=== PATIENT | female | born 1940 | race Caucasian/White ===

== ENCOUNTER 2016-11-09 15:48 | Inpatient (IN) ==
[2016-11-09] MEDS ORDERED: NS 1,000 ML IV ONE ×3 (16:04→19:11)
[2016-11-09] MEDS ORDERED: HUMULIN R SUBQ ONE (16:04)
[2016-11-09 16:10] LABS: ALLEN TEST YES; BE -9.5 mmoll (-3.0-3.0); BLOOD TYPE ARTERIAL; DRAW SITE L RADIAL; METHB 1.1 % (0.0-1.5); O2(CT) 23.4 mL/dL (15.0-23.0); PCO2(98.6) 24 mmHg (35-45); PO2(98.6) 173 mmHg (60-100); SAMPLE BLOOD; SAO2 99.5 % (95.0-100.0); THB 16.9 g/dL (11.5-17.4); pH(98.6) 7.36 (7.35-7.45)
[2016-11-09] MEDS ORDERED: NARCAN IV ONE (16:11)
[2016-11-09 16:12] LABS: MODALITY CANNULA
[2016-11-09 16:21] LABS: BASO% 0.2 % (0.0-0.8); HEMATOCRIT 49.9 % (37.0-47.0); HEMOGLOBIN 16.8 g/dL (12.0-16.0); IMM GRAN# 0.24 X1000 (0.0-0.04); IMM GRAN% 0.9 % (0.0-0.5); LYMPH# 1.26 X1000 (1.2-3.4); MANUAL DIFF NEEDED? YES; MCH 32.1 PG (27-31); MCHC 33.7 g/dL (33-37); MCV 95.4 FL (81-99); MONO# 0.85 X1000 (0.11-0.59); MONO% 3.3 % (1.7-9.3); MPV 11.6 FL (7.4-10.4); NEUT% 90.6 % (42.2-75.2); PLT 301 X1000 (130-400); RBC 5.23 XMIL (4.2-5.4)
--- NOTE | 2016-11-09 16:28 | Diag Imaging Result Doc PS360 ---
EXAM: CHEST-1 VIEW HISTORY: altered TECHNIQUE: AP portable at 1624, upright COMMENT: The atelectasis demonstrated on 11/19/2013 in the lingula is no longer present. Otherwise the appearance of the chest has not changed significantly. IMPRESSION: No acute disease. Electronically signed by Arnoldo Wray 11/09/2016 4:26 PM
[2016-11-09] MEDS ORDERED: VANCOMYCIN 1 GM/NS 1 GM/250 ML IVPB IV ONE (16:55)
[2016-11-09] MEDS ORDERED: LEVAQUIN 500 MG/D5W 500 MG/100 ML IVPB IV ONE (16:55)
[2016-11-09 16:57] LABS: ALBUMIN 3.6 g/dL (3.5-5.0); LYMPHS 9 % (21-51); MAGNESIUM 3.6 mg/dL (1.5-2.7); MONO 6 % (1-9); POTASSIUM 4.5 mmol/L (3.5-5.1); TOTAL BILIRUBIN 0.86 mg/dL (0.20-1.00); TOTAL PROTEIN 7.4 g/dL (6.3-8.3)
[2016-11-09 17:32] LABS: URINE SOURCE CATH
[2016-11-09 17:43] LABS: BILIRUBIN URINE NEGATIVE (NEGATIVE); BLOOD URINE SMALL (NEGATIVE); COLOR ORANGE; GLUCOSE URINE NEGATIVE (NEGATIVE); LEUKOCYTES URINE LARGE (NEGATIVE); NITRITE URINE NEGATIVE (NEGATIVE); PH URINE 5.5; PROTEIN URINE 200 mg/dL (NEGATIVE); SP GRAVITY URINE 1.019; TURBIDITY URINE TURBID (CLEAR); UROBILINOGEN URINE NORMAL (NORMAL)
[2016-11-09 17:48] LABS: UR AMPHETAMINES QUAL NONE DETECTED (NONE DETECT); UR BARBITUATES QUAL NONE DETECTED (NONE DETECT); UR BENZODIAZEPIN QUAL NONE DETECTED (NONE DETECT); UR CANNABINOIDS QUAL NONE DETECTED (NONE DETECT); UR COCAINE QUAL NONE DETECTED (NONE DETECT); UR METHADONE QUAL NONE DETECTED (NONE DETECT); UR OPIATES QUAL NONE DETECTED (NONE DETECT); UR OXYCODONE QUAL NONE DETECTED (NONE DETECT); UR PCP QUAL NONE DETECTED (NONE DETECT)
[2016-11-09 17:50] LABS: UR EPITHELIAL CELLS >10 /HPF (<10); URINE BACTERIA 4+ /HPF; URINE CULTURE NEEDED? YES; URINE MICRO REVIEW NEEDED? YES; URINE WBC TNTC /HPF (<10)
--- NOTE | 2016-11-09 18:03 | PROVIDER DOCUMENTATION ---
This chart was entered by Tate Pritchett Scribe, acting as scribe for Bridger Tilley MD. HPI-Neurological Disorder <Vernon Shanks - Last Filed: 11/09/16 19:51> - General Source: EMS Unable to obtain history due to:: altered - History of Present Illness-Neuro Severity: reports: severe Onset/Duration: reports: unsure Timing: reports: still present, constant Context: reports: found unresponsive by bystander Character of Altered Mental Status: reports: unresponsive, decreased responsiveness Any recent trauma/injury?: reports: none Associated Symptoms: reports: decreased ability to walk or stand, sleepy, weakness. denies: fever/chills, vomiting <Bridger Tilley - Last Filed: 11/18/16 15:46> - General Chief Complaint: Unresponsive Stated Complaint: UNRESPONSIVE Time Seen by Provider: 11/09/16 15:48 Allergies/Adverse Reactions: Patient Allergies Allergy/AdvReac Type Severity Reaction Status Date / Time No Known Allergies Allergy Verified 11/09/16 18:01 Home Medications: Home Medication List Medication Instructions Recorded Confirmed Last Taken Type Aspirin [Aspirin EC] 81 mg PO DAILY 11/09/16 11/09/16 Unknown History Duloxetine HCl 40 mg PO DAILY 11/09/16 11/09/16 Unknown History Furosemide [Lasix] 20 mg PO DAILY 11/09/16 11/09/16 Unknown History Metformin HCl [Metformin HCl ER] 500 mg PO DAILY 11/09/16 11/09/16 Unknown History SIMVAstatin [Zocor] 10 mg PO HS 11/09/16 11/09/16 Unknown History Valsartan/Hydrochlorothiazide 1 each PO DAILY 11/09/16 11/09/16 Unknown History [Valsartan-Hctz 160-25 mg Tab] - History of Present Illness-Neuro Nature of Presenting Problem: patient is a 76 y/o F that presents to the ER with decreased responsiveness. patient was found at her residence slumped over. She hasn't been seen in a few days. her oxygenation saturation was 77% on 15lpnc en route. She was found to have been incontient of stool or urine. (Tate Pritchett) patient is a 76 y/o F that presents to the ER with decreased responsiveness. patient was found at her residence slumped over. She hasn't been seen in a few days. her oxygenation saturation was 77% on 15lpnc en route. She was found to have been incontient of stool or urine. (Bridger Tilley) Review of Systems - Adult - REVIEW OF SYSTEMS - ADULT Constitutional: reports: see HPI <Vernon Shanks - Last Filed: 11/09/16 19:51> - REVIEW OF SYSTEMS - ADULT ROS:: unobtainable per condition Constitutional: reports: no symptoms reported, see HPI Respiratory: reports: shortness of breath Gastrointestinal: denies: diarrhea, vomiting Genitourinary: reports: incontinence Musculoskeletal: reports: joint swelling Integumentary: reports: skin sores/ulcer Neurological: reports: other (ams) All Other Systems: Reviewed and Negative <Bridger Tilley - Last Filed: 11/18/16 15:46> Past History - Adult - PAST MEDICAL HISTORY-ADULT Review of Records: reports: Nursing Assessment Review, Medications Reviewed <Bridger Tilley - Last Filed: 11/18/16 15:46> Physical Exam- Neurological - Physical Exam-Neuro Exam Limited by: pt condition Initial Vital Signs Reviewed: Yes General Appearance: severe distress, obese, lethargic Eye Exam: bilateral eye: other (pinpoint) HENMT: TMs normal, other (dry oral mucosa) Head Injury: negative: ecchymosis, tenderness Respiratory: no accessory muscle use, respiratory distress (moderate), decreased breath sounds. negative: rales, rhonchi, wheezing Cardiovascular: no JVD, no murmur, tachycardia Abdominal Exam: normal bowel sounds, non tender, soft Extremity: swelling (right arm). negative: deformity Integumentary: swelling (right arm), other (pressure sore to forehead right side...strangulation type pressure ulcer to right axilla( consistent with bra line) blistering to right hand and right forearm, excoloration to rectum area) Psych/Mental Status: other (lethargic, only responsive to painful stimuli) - Glascow Coma Scale Best Eye Response: (2) open to pain Best Verbal Response: (2) incomprehsible sounds Best Motor Response: (5) localizes to pain Total Glascow Score: 9 <Bridger Tilley - Last Filed: 11/18/16 15:46> Progress - PLAN OF CARE/RESULTS Result Diagrams: 11/09/16 15:53 11/09/16 15:53 - REASSESSMENT Reassessment #2 Time Reassessed: 19:46 (May need fasciotomy) Status: improving - CONSULTS/PCP/HOSPITALIST Notification #1 *Consult/PCP/Hospitalist*: Dr Cook Time Discussed: 19:47 Consult Disposition: Will see in ED <Vernon Shanks - Last Filed: 11/09/16 19:51> - PLAN OF CARE/RESULTS Result Diagrams: 11/18/16 05:05 11/18/16 05:05 - REASSESSMENT Reassessment #1 Time Reassessed: 16:45 Status: improving Reassessment Comment: pt more responsive - EKG 1 Time of EKG reading by physician:: 16:04 EKG Read and Signed by:: Bridger Tilley EKG Interpretation (*Must complete 3 of following elements*): Abnormal Rate: 110 Rhythm: sinus tachycardia QRS: other (left posterior fascicular block) [place] Interval: normal ST Wave: normal - XRAY 1 XRAY Study: Chest Impression: Normal XRAY Interpretation: nad <Bridger Tilley - Last Filed: 11/18/16 15:46> - PLAN OF CARE/RESULTS Progress/Plan/Lab Results: Orders Category Date Time Status Admit - [facility] Routine [id number] 11/09/16 22:24 Ordered Activity - Up with Assistance ORDERED Care 11/09/16 22:24 Active FSBS/Accucheck Result Q4HR Care 11/09/16 22:24 Active Intake and Output-Strict ORDERED Care 11/09/16 22:24 Active Misc. NRSG Communication Order DIRECTED Care 11/09/16 22:24 Active Nursing- MD Consult Request ROUTINE Care 11/09/16 22:24 Completed Vital Signs Order Q 8-HR ASSESS Care 11/09/16 22:24 Completed Physician/Provider Consults Routine Cons 11/09/16 22:24 Ordered NPO Diet 11/09/16 20:13 Completed CHEST-1 VIEW [RAD] Stat Exams 11/09/16 16:03 Completed EXTREM UPPER W/O CONTRAST [CT] Stat Exams 11/09/16 22:24 Completed HEAD W/O CONTRAST [CT] Stat Exams 11/09/16 16:01 Completed A1C HGB W EST AVG GLUCOSE [CHEM] Stat Lab 11/09/16 15:53 Completed ABG [RESP] Routine Lab 11/09/16 16:01 Completed BLOOD CULTURE [BLDCUL] Stat Lab 11/09/16 17:32 Completed CBC WITH DIFF [HEME] Routine Lab 11/10/16 05:00 Completed CBC WITH DIFF [HEME] Stat Lab 11/09/16 15:53 Completed CK TOTAL [CHEM] Stat Lab 11/09/16 15:53 Completed COMPREHENSIVE METABOLIC PANEL [CHEM] Routine Lab 11/10/16 05:00 Completed COMPREHENSIVE METABOLIC PANEL [CHEM] Stat Lab 11/09/16 15:53 Completed GRAM STAIN [BLDCUL] Stat Lab 11/09/16 17:30 Completed GRAM STAIN [BLDCUL] Stat Lab 11/09/16 17:32 Completed LACTATE, PLASMA [CHEM] Stat Lab 11/09/16 16:11 Completed LACTATE, PLASMA [CHEM] Stat Lab 11/09/16 20:25 Completed MAGNESIUM [CHEM] Stat Lab 11/09/16 15:53 Completed PT [PROTIME WITH INR] [COAG] Stat Lab 11/09/16 16:10 Completed PTT [COAG] Stat Lab 11/09/16 16:10 Completed URINALYSIS W/POSS RFLX CULT [URINALYSIS] Stat Lab 11/09/16 17:00 Completed URINE CULTURE [RM] Routine Lab 11/09/16 17:51 Completed URINE DRUG SCREEN Stat Lab 11/09/16 17:00 Completed URINE MANUAL MICROSCOPIC [URINALYSIS] Stat Lab 11/09/16 17:00 Completed 0.9% Sodium Chloride Inj [Ns] 1,000 ml Med 11/09/16 22:24 Discontinued IV 175 mls/hr 0.9% Sodium Chloride Inj [Ns] 1,000 ml Med 11/09/16 16:55 Discontinued IV 999 mls/hr 0.9% Sodium Chloride Inj [Ns] 1,000 ml Med 11/09/16 19:11 Discontinued IV 999 mls/hr 0.9% Sodium Chloride Inj [Ns] 1,000 ml Med 11/09/16 16:04 Discontinued IV Wide Open Acetaminophen [Tylenol] Med 11/09/16 22:24 Active 650 mg PO Q6H PRN PRN Aspirin EC Med 11/10/16 09:00 Discontinued 81 mg PO DAILY Enoxaparin [Lovenox] Med 11/09/16 22:24 Discontinued 40 mg SUBQ NOW ONE Insulin Glargine [Lantus] Med 11/10/16 09:00 Active 20 unit SUBQ DAILY Insulin Glargine [Lantus] Med 11/09/16 22:24 Discontinued 20 unit SUBQ NOW ONE Insulin Human Regular [Humulin R] Med 11/09/16 16:04 Discontinued 10 unit SUBQ NOW ONE Insulin Lispro [Humalog] Med 11/09/16 22:24 Discontinued See Protocol SUBQ AC + HS Levofloxacin 500 mg/D5w [Levaquin 500 mg/D5w] Med 11/09/16 16:55 Discontinued 500 mg in 100 ml IV NOW Naloxone [Narcan] Med 11/09/16 16:11 Discontinued 0.4 mg IV NOW ONE Ondansetron [Zofran] Med 11/09/16 22:24 Active 4 mg IV Q4H PRN PRN Piperacil/Tazobact 2.25 gm/Ns [Zosyn 2.25 gm/Ns] Med 11/09/16 22:24 Discontinued 2.25 gm in 50 ml IV NOW Piperacil/Tazobact 2.25 gm/Ns [Zosyn 2.25 gm/Ns] Med 11/10/16 04:00 Discontinued 2.25 gm in 50 ml IV Q6H Vancomycin 1 gm/Ns Med 11/09/16 16:55 Discontinued 1 gm in 250 ml IV NOW Venous U/S Right Arm Stat Ther 11/09/16 20:05 Draft Transfer/Admit Order [TRANSFER] Routine Transfer 11/09/16 20:[address] scan of head @ 18:00, Dr. Shanks assuming care for final admission pending review of same. pt continues to improve. (Bridger Tilley) Departure - Departure Date of Disposition Decision: 11/09/16 Time of Disposition Decision: 19:48 <Vernon Shanks - Last Filed: 11/09/16 19:51> - Departure Date of Disposition Decision: 11/09/16 Time of Disposition Decision: 19:47 Certified Medical Emergency: Emergent - Critical Care Note This patient required my direct & personal management of CC.: Yes Total Time (mins): 90 Critical Care Statement: This patient required my direct personal management to treat or rule out processes, the absence of which, could potentiallly result in sudden, clinically significant life or limb threatening deterioration. <Bridger Tilley. - Last Filed: 11/18/16 15:46> - Departure DIAGNOSIS: Acute renal failure Qualifiers: Acute renal failure type: unspecified Qualified Code(s): N17.9 - Acute kidney failure, unspecified Rhabdomyolysis Qualifiers: Rhabdomyolysis type: traumatic Encounter type: initial encounter Qualified Code (s): T79.6XXA - Traumatic ischemia of muscle, initial encounter Diabetes Qualifiers: Diabetes mellitus complication status: with hyperosmolarity Disposition: ADMITTED INPATIENT 09 Condition: Critical This chart was documented by the indicated scribe, (Tate Pritchett, Scribe) and accurately reflects the services I performed and decisions made by me, Bridger Tilley MD, as attested by the provider's signature.
--- NOTE | 2016-11-09 18:04 | Diag Imaging Result Doc PS360 ---
EXAM: HEAD W/O CONTRAST HISTORY: altered, trauma TECHNIQUE: CT of the head without contrast COMMENT: There is no evidence of mass effect bleed or abnormal extra-axial fluid collection. The calvarium is somewhat thickened. There is no evidence of acute paranasal sinus disease. The calvarium is intact. There are no previous studies. IMPRESSION: No evidence of acute intracranial disease. Electronically signed by Arnoldo Wray 11/09/2016 6:02 PM
[2016-11-09 20:26] LABS: INR 1.17; PROTIME 12.4 Seconds (9.2-11.7); PTT 23.6 Seconds (22.0-36.0)
[2016-11-09 21:36] LABS: HEMOGLOBIN A1C 6.5 % (4.8-6.0)
--- NOTE | 2016-11-09 21:49 | HISTORY AND PHYSICAL ---
REASON FOR ADMISSION: Found obtunded at home. HISTORY OF PRESENT ILLNESS: Ms. Yaritza Chan is a 76-year-old lady with past medical history of type 2 diabetes, hypertension, allergic rhinitis, hyperlipidemia. Primary care physician at this time is unknown. She was brought in today after her landlord noticed that she had not picked up her mail for 5 days in a row. He went to knock at the door and opened the door and found the patient laying on the couch with her right arm behind her. At that time she was noted to be obtunded, lethargic, and not responsive. She was covered in old and new feces. She then brought to the ER for further evaluation. Unfortunately there are no family members to give us any information. She lives alone. When I saw the patient she would open eyes only to her name but that was pretty much the extent of our conversation. The nurse actually who was taking care of her told me that she was a little more responsive since she has gotten 3 L of normal saline. REVIEW OF SYSTEMS: Could not be ascertained for obvious reasons. Her urine output is very minimal, about 50 mL after 3 L. ALLERGIES: No known allergies. HOME MEDICATIONS: Aspirin 81 mg daily, Cymbalta 40 mg daily, Lasix 20 mg daily , metformin 500 mg daily, Zocor 100 mg at bedtime, Diovan/hydrochlorothiazide 160/12.5 daily. FAMILY HISTORY: Could not be obtained. PAST SURGICAL HISTORY: Per old records showed that she has had bilateral knee surgery, cataract surgery, breast augmentation, cholecystectomy, skin cancer excision, and bladder sling. SOCIAL HISTORY: Per old records, does not smoke, drink, or use drugs. LAB WORK: White count 25,000, hemoglobin and hematocrit of 16 and 49, platelets 301,000. BUN is 200, creatinine 8, glucose 527, magnesium 3.3. AST 41, ALT 50, anion gap is 31 , bicarb 20, alkaline phosphatase 122. CK 1080. Lactate 4.4. Urine drug screen was negative. Urinalysis too numerous to count white cells, 4+ bacteria. PH 7.3, pCO2 24, pO2 173 on 3 L. EKG shows sinus tachycardia with left axis deviation. Chest x-ray and CT scan showed no acute cardiopulmonary and intracranial processes. PHYSICAL EXAMINATION: GENERAL: Obese, elderly woman who is very lethargic. She opens her eyes only to her name and later during the course of the exam, was able to tell me her name but that was the extent of how far she would talk. VITAL SIGNS: Heart rate is 110, respirations 25, blood pressure 98/51, 100% on 3 L. She is afebrile. HEENT: Head is normocephalic, atraumatic. Eyes, pupils are miotic but reactive. Affect is flat. Anicteric and not pale. ENT exam, dry oral mucosa. No sinus cyanosis. NECK: Supple. No JVD or carotid bruit. No thyromegaly. Decreased skin turgor. CHEST: Clear to auscultation both lung sotelo. CARDIOVASCULAR: First and sounds heard. No gallops, rubs. Rhythm is regular. ABDOMEN: Protuberant soft, nontender. No megaly. Bowel sounds hypoactive. RECTAL: Deferred at this time. EXTREMITIES: She has trace edema of her lower extremities. Pulses distally are intact and symmetrical. Upper extremity on the hand, she has significant 3+ edema and swelling of her right upper extremity. It is warm. No dusky coloration. Distally pulses are palpable in both upper extremities and are symmetrical. She has an area of ecchymosis and what I would term as early stage I pressure ulcer on the tail of her breast. Her right axilla, however, shows a huge necrotic area and foul-smelling discharge emanating from the entire right axilla. No cyanosis. No clubbing. The patient will follow few basic commands but she is for most part lethargic and obtunded. She is unable to move her right upper extremity. She will sporadically move her left upper extremity and lower extremity. SKIN: See above. MUSCULOSKELETAL: See above. ASSESSMENT: 1. Early sepsis from urinary tract infection. 2. Acute kidney injury secondary to rhabdomyolysis. 3. Rhabdomyolysis secondary to probable early myonecrosis ? compartment syndrome. 4. Metabolic encephalopathy secondary to acute kidney injury. 5. Uncontrolled diabetes. 6. Hyperlipidemia. 7. History of hypertension. PLAN: At this time the patient will be admitted and started on Zosyn and vancomycin primarily for the early soft tissue infection and also possible urinary tract infection. IV fluids will be administered aggressively to maintain a blood pressure and if this fails we may consider adding on pressors. Keep arm elevated. Consult general surgery for possible debridement of axillary area. Started on humalog and Lantus to control her blood sugar. It is very likely patient's renal failure is a combination of rhabdomyolysis, poor oral intake, possible concomitant use of her blood pressure medication and prolonged hypotension. If this does not improve significantly, I suggest consulting Nephrology to see. I do suspect this should turn around with aggressive fluid resuscitation. DVT prophylaxis will be with heparin. Critical care > 30 mins Addendum Patient's ultrasound of RUE showed DVT of basillic and axillary veins. cc: Kd Cook MD MTDD
[2016-11-09] MEDS ORDERED: LANTUS SUBQ ONE (22:24)
[2016-11-09] MEDS ORDERED: ZOSYN 2.25 GM/NS 2.25 GM/50 ML IVPB IV ONE (22:24)
[2016-11-09] MEDS ORDERED: TYLENOL PO PRN (22:24)
[2016-11-09] MEDS ORDERED: LOVENOX SUBQ ONE (22:24)
[2016-11-09] MEDS ORDERED: INSULIN PEN NEEDLES ONE (22:51)
[2016-11-09] MEDS: NS 1,000 ML IV SCH (22:53)
[2016-11-09] MEDS: HUMALOG SUBQ SCH (22:54)
[2016-11-10] MEDS ORDERED: CALMOSEPTINE OINTMENT TOP PRN (02:27)
[2016-11-10] MEDS: ZOSYN 2.25 GM/NS 2.25 GM/50 ML IVPB IV SCH ×4 (04:12→22:26)
--- NOTE | 2016-11-10 05:32 | EKG Report ---
Test Performed on : 11/09/2016 4:03:29 PM Test Reason : Tachycardia/Re-Ordered Blood Pressure : / mmHG Vent. Rate : 110 BPM Atrial Rate : 110 BPM P-R Int : 160 ms QRS Dur : 082 ms QT Int : 340 ms P-R-T Axes : 068 117 042 degrees QTc Int : 460 ms Sinus tachycardia. Left posterior fascicular block Abnormal ECG When compared with ECG of 28-JUL-2010 08:16, Left posterior fascicular block is now present Unconfirmed Result
[2016-11-10] MEDS: HUMALOG SUBQ SCH ×4 (06:13→22:50)
[2016-11-10 06:22] LABS: BASO% 0.1 % (0.0-0.8); HEMATOCRIT 42.4 % (37.0-47.0); HEMOGLOBIN 14.5 g/dL (12.0-16.0); IMM GRAN# 0.28 X1000 (0.0-0.04); IMM GRAN% 1.2 % (0.0-0.5); LYMPH# 0.65 X1000 (1.2-3.4); LYMPH% 2.7 % (20.5-51.1); MANUAL DIFF NEEDED? YES; MCH 32.7 PG (27-31); MCHC 34.2 g/dL (33-37); MCV 95.7 FL (81-99); MONO# 1.89 X1000 (0.11-0.59); MONO% 7.9 % (1.7-9.3); MPV 11.1 FL (7.4-10.4); NEUT% 88.1 % (42.2-75.2); PLT 175 X1000 (130-400); RBC 4.43 XMIL (4.2-5.4)
[2016-11-10] MEDS: NS 1,000 ML IV SCH ×2 (07:06→16:24)
[2016-11-10 07:07] LABS: ALBUMIN 2.6 g/dL (3.5-5.0); CALCIUM 8.3 mg/dL (8.8-10.2); POTASSIUM 3.8 mmol/L (3.5-5.1); TOTAL BILIRUBIN 0.53 mg/dL (0.20-1.00); TOTAL PROTEIN 5.5 g/dL (6.3-8.3)
--- NOTE | 2016-11-10 07:46 | Diag Imaging Result Doc PS360 ---
EXTREM UPPER W/O CONTRAST - 11/09/2016 INDICATION: myonecrosis TECHNIQUE: CT of the right arm without contrast. A CT dose reduction protocol was used. COMPARISON: None FINDINGS: At the proximal biceps muscle extending to the undersurface of the pectoralis muscle, there is some intramuscular gas. There is also significant soft tissue edema about the muscles of the upper arm. No drainable fluid collections. No fractures or bony erosions. No foreign body. The edema extends into the forearm somewhat. The gas however is limited to the upper biceps muscle. IMPRESSION: Findings concerning for necrotizing fasciitis of the upper biceps muscle extending to the undersurface of the pectoralis muscles. Diffuse subcutaneous edema about the right arm is indeterminate. This could represent cellulitis, venous insufficiency, or more widespread myositis. Electronically signed by Luke Hoover 11/10/2016 7:44 AM
[2016-11-10 07:54] LABS: LYMPHS 6 % (21-51); MONO 10 % (1-9)
[2016-11-10] MEDS ORDERED: VANCOMYCIN IV PER PHARMACY MISC SCH (08:00)
[2016-11-10] MEDS ORDERED: SODIUM BICARBONATE 8.4% 150 MEQ in D5W 1,000 ML IV SCH (09:00)
[2016-11-10] MEDS ORDERED: ASPIRIN EC PO SCH (09:00)
[2016-11-10] MEDS ORDERED: NS IV SCH (09:00)
[2016-11-10] MEDS ORDERED: CUBICIN IV SCH (09:00)
[2016-11-10] MEDS ORDERED: XYLOCAINE 1%/EPI 1:100,000 ONE (09:04)
[2016-11-10] MEDS ORDERED: NS 250 ML ONE (09:04)
[2016-11-10] MEDS ORDERED: HEPARIN ONE ×2 (09:04→11:57)
[2016-11-10] MEDS ORDERED: VERSED ONE (09:08)
[2016-11-10] MEDS ORDERED: XYLOCAINE-MPF 2% ONE ×2 (09:08→09:10)
[2016-11-10] MEDS ORDERED: DIPRIVAN 1% ONE (09:09)
[2016-11-10] MEDS ORDERED: FENTANYL ONE (09:09)
[2016-11-10] MEDS ORDERED: QUELICIN (DOSE) ONE (09:10)
--- NOTE | 2016-11-10 09:48 | PROGRESS NOTE ---
DATE: 11/10/2016 SUBJECTIVE DATA: Ms. Chan is an unfortunate, 76-year-old, female who was found down for an unknown period of time in her apartment. The landlord had not seen her in multiple days and finally check on her and found her unresponsive on the couch covered in feces. The patient was brought emergently to the ER here and was found to be in acute renal failure with a creatinine of 8 and BUN of 201. She was hypotensive with a white count of 25. Apparently, she was found malrotated, laying on her arm. She has obvious bruising and ulceration to the right axilla area. A CT scan subsequently revealed concerns for necrotizing fasciitis in the right axilla. This morning, we have spoken with Dr. Cope with surgery and Dr. Chu with nephrology. The plan is for emergent fasciotomy and Vas-Cath placement. The patient will then undergo hemodialysis. The patient herself is nonverbal. She is awake and follows commands but she will not say anything when asked. We do not have any family at the bedside. Son has been consult contacted. He lives in [place] and is on a plane on his way down here currently. She is a full code. Currently, she is hemodynamically stable in the ICU. No acute events noted overnight by the nursing staff. She does have gram positive cocci bacteremia confirmed. OBJECTIVE DATA: Vital Signs: Blood pressure is 121/65, heart rate is 102, respiratory rate 25, O2 saturations 98% on 2 L nasal cannula. Temperature is 97.1 degrees. General: This is an overweight, female, lying in the hospital bed. No acute distress. Neurologic: The patient is awake with her eyes open but she will not verbalize. She follows commands. There is generalized weakness noted but no focal deficits. HEENT: Head is atraumatic and normocephalic. Her pupils are equal, round, and reactive to light. Oral mucosa is a bit dry. Trachea is midline. There is no JVD. Chest: Clear to auscultation bilaterally. Obvious bruising and ulceration to the right axilla with bruising extending into the right chest wall. CV: Regular rate and rhythm. S1 and S2 are noted. GI: Soft and nondistended. Bowel sounds are hypoactive. Extremities: Right upper extremity, fingers are swollen and erythematous. A pulse is palpable but it is faint. Doppler is positive in the right radial artery. Lower extremities without edema, clubbing, or cyanosis. Pulses are diminished but palpable. DIAGNOSTIC DATA: WBCs 23.9, hemoglobin 14.5, hematocrit 42.4, and platelet count 175,000. Sodium 150, potassium 3.8, chloride 110, CO2 16, anion gap 24, BUN 181, creatinine 7.1, glucose is 231, calcium 8.3. Total bilirubin 0.53, AST 60, ALT 50, alkaline phosphatase 91, albumin 2.6. Lactic acid 3.7. ASSESSMENT AND PLAN: 1. Acute kidney injury: Dr. Chu is following and the plan is for dialysis. We have ordered multiple urine studies and a renal ultrasound, and have added bicarb fluids. We will continue to watch her acid base balance and volume status. 2. Necrotizing fasciitis: Dr. Cope is aware and has seen the patient. He is going to take her to surgery for a fasciotomy and debridement. We have started broad-spectrum antibiotics and we will consult Dr. Ortiz with infectious disease as well. We will continue to monitor her neurovascular status very closely. 3. Severe sepsis: Secondary to necrotizing fasciitis and urinary tract infection, and to now gram-positive bacteremia. She continues to have a lactic acidosis which we are trending and we will continue to trend until clear. We will continue daptomycin and Zosyn. 4. Rhabdomyolysis: We will attempt to alkalinize her urine with bicarb and continue intravenous fluids. Patient will receive dialysis. We will trend her CK until within normal limits. 5. Elevated anion gap metabolic acidosis: Multifactorial, secondary to lactic acidosis and renal failure. Patient does have possible criteria for diabetic ketoacidosis but this is improved with fluids and insulin. We will continue to watch her anion gap and CO2 closely. We will continue the bicarb drip as well. 6. Urinary tract infection: As above. 7. The patient is critically ill at this time. Her prognosis is poor. We have spoken with her son who is flying down from [place] at the time of this dictation. He currently wishes for her to be a full code. 8. Deep venous thrombosis prophylaxis will be provided with sequential compression devices. 9. Critical care time with this patient is 35 minutes. Dictated by MAGGIE Braxton for Raul Ahuja MD cc: MAGGIE Braxton MD
[2016-11-10] MEDS ORDERED: NEO-SYNEPHRINE ONE (10:10)
[2016-11-10] MEDS ORDERED: EPHEDRINE ONE (10:15)
[2016-11-10] MEDS ORDERED: HYDROGEN PEROXIDE SOLUTION ONE (10:29)
[2016-11-10] MEDS: LANTUS SUBQ SCH (11:44)
--- NOTE | 2016-11-10 11:47 | Diag Imaging Result Doc PS360 ---
EXAM: CHEST-PORTABLE HISTORY: vas cath TECHNIQUE: Portable supine AP COMPARISON: 11/09/2016 FINDINGS: There is an endotracheal tube in good position with tip located 3 cm above the doug. A nasogastric tube overlies the esophagus and stomach. Interval placement of a left subclavian line. The tips overlie the distal superior vena cava. No pneumothorax. Heart is not enlarged. The vessels are not distended. No pleural effusions identified. IMPRESSION: No postprocedural pneumothorax. Electronically signed by Constantino Monahan 11/10/2016 11:44 AM
[2016-11-10] MEDS ORDERED: NS 2,000 ML ONE (11:57)
[2016-11-10] MEDS ORDERED: DIPRIVAN 1% 1,000 MG/100 ML BOTTLE ONE (12:01)
[2016-11-10] MEDS ORDERED: HEPARIN IV PRN (12:07)
[2016-11-10] MEDS ORDERED: TIGHT: 0.2 ML/HR MISC PRN (12:07)
[2016-11-10] MEDS ORDERED: NS 2,000 ML MISC PRN (12:07)
[2016-11-10] MEDS ORDERED: 1/2 NS 1,000 ML IV SCH ×2 (13:00→20:25)
[2016-11-10] MEDS ORDERED: HUMALOG SUBQ SCH (13:00)
--- NOTE | 2016-11-10 13:10 | CONSULTATION ---
DATE OF CONSULTATION: 11/10/2016 REASON FOR CONSULTATION: Acute kidney injury. HISTORY OF PRESENT ILLNESS: Ms. Chan is a 76-year-old white female with a history of diabetes, hypertension, hyperlipidemia. She had no family in attendance at the time of my exam. Notes indicate that her landlord noticed she had not picked up her mail for several days. He entered the residence and found her lying on the couch with her arm underneath her. She was unresponsive and therefore was brought to the emergency room. Her initial evaluation found her blood pressure to be 61/52 with a heart rate of 103. First recorded temperature was 96.9 degrees. She had a draining wound on the medial aspect of her right arm as well as an eschar on the upper chest. She was treated with fluid resuscitation, antibiotics, and a CT was performed which demonstrated evidence of fasciitis in the right upper arm and extending to the under surface of the pectoralis muscles. Her initial laboratory data also indicated metabolic acidosis, acute kidney injury. At the time of my exam there is about 200 mL of urine in the bag and her BUN and creatinine have improved modestly with her initial treatment. PAST MEDICAL HISTORY: As above. HOME MEDICATIONS: Aspirin, Cymbalta, furosemide, metformin, Zocor, Diovan, hydrochlorothiazide. ALLERGIES: None. SOCIAL HISTORY: Again, lives alone. FAMILY HISTORY: Otherwise not obtainable. REVIEW OF SYSTEMS: Otherwise not obtainable. PHYSICAL EXAMINATION: Vital Signs: Blood pressure 121/65, heart rate 102, respirations 25, afebrile. General: She is an acutely ill, elderly woman, lying at 20 degrees. Eyes are open and she does respond with yes and no to specific questions about pain, shortness of breath, etc. She denies shortness of breath, though does complain of pain. Skin: Somewhat cool but dry. There is no cyanosis peripherally or centrally. She does have an eschar on the upper right chest that extends into the axilla and on the medial aspect of the right arm there is a large area of necrotic tissue with a central ulceration that is draining. There is no palpable crepitus. There is another similar wound on the chest wall, along the posterior axillary line. Additionally, she has a large area of desquamation on the medial aspect of the right forearm. Other small abrasions present. Pupils are equal. Conjunctivae are pink. Oropharynx is dry. Neck: Supple. Neck veins are visible at the level of the clavicle, but she is laying at 10-20 degrees. Heart: Regular, tachycardic. No gallops or murmurs are audible. Lungs: Have equal breath sounds, shallow. No crackles. Abdomen: Soft and minimally tender. Bowel sounds are not appreciated. No organomegaly or masses. Extremities: Have trace edema in the feet. No clubbing or cyanosis. Distal pulses are not palpable in the radial or dorsalis pedis locations. Neurologic Exam: Grossly nonfocal. Mental status as above. She does spontaneously move all extremities. Toes are downgoing. LABORATORY DATA: Sodium 150, potassium 3.8, chloride 110, bicarbonate 16, BUN 81, creatinine 7.1. PH 7.36, pCO2 24, PO2 173. White blood cell count 24,000, hemoglobin 14.5, platelets 175,000. IMPRESSIONS: 1. Acute kidney injury. Multifactorial with volume contraction, angiotensin receptor sarmad, sepsis. Most likely, she has ATN following sepsis and volume contraction. She has had appropriate initial volume resuscitation. We will image her kidneys and collect urine electrolytes. However, she certainly needs to initiate dialysis to assist with her management. Dr. Cope will place a Vas-Cath. 2. Metabolic acidosis. Increased anion gap. Several components including lactate and renal failure. She is on a bicarbonate drip now. We will continue to manage this with dialysis. 3. Electrolytes: No hyperkalemia. Moderate hypernatremia has developed. We will decrease the sodium concentration of her bicarb drip with her next bag. 4. Sepsis: Her antibiotic dosing is appropriate. I will add vancomycin. cc: Vidal Chu MD
[2016-11-10 13:33] LABS: CK-MB 25.08 ng/mL (0.0-5.0)
--- NOTE | 2016-11-10 14:05 | OPERATIVE NOTE ---
PROCEDURE DATE: 11/10/2016 PREOPERATIVE DIAGNOSES: 1. Being found unresponsive in her house, unattended for 4-5 days. 2. Acute renal failure. 3. Sepsis. 4. Pressure necrosis right axilla and chest wall, with air in the biceps muscle and pectoralis muscle. 5. Acute renal failure. 6. Multi-system organ failure. INDICATIONS: The patient is a 76-year-old white female, found down, who neighbors were notified by the mailman that she had not picked up her mail in 4-5 days. She was found unconscious on her couch, laying on her right arm, covered in feces. She was brought to the emergency room hypotensive. She had she has been in intensive care unit. Admission laboratory work revealed elevated white count at 24,000, the creatinine 8. She was resuscitated in the ER, put in ICU, and given IV fluids. Consultations are for Dr. Chu of the Nephrology Service and myself of General Surgery and Dr. Ortiz of Infectious Disease. The patient has a large necrotic area on her right axilla. DESCRIPTION OF PROCEDURE: She was brought to the operating room. After satisfactory induction of IV and endotracheal anesthesia, athrombic TEDs were placed. Ponce catheter was already indwelling. Initially the left neck and subclavian area were prepped and draped in the appropriate manner. In the midclavicular line, an area was infiltrated with Xylocaine. Attempts at subclavian access were unsuccessful. For this reason, with Doppler guidance, a counter incision was made at the base of the neck, between the bellies of the digastric muscle and the sternocleidomastoid. Under ultrasound guidance the access guidewire was introduced into the right atrial area of the heart. There was no pneumothorax. With progressive dilations, a Vas-Cath was tunneled from the upper chest wall down to the superior vena cava right atrial junction. It was flushed with heparinized saline. Exit site was anchored with 0 silk. The two small incisions were closed with 2-0 Vicryl subcutaneous and 4-0 Vicryl subcuticular. Steri-Strips, Telfa, and OpSite were placed at the upper incisions. The exit site was marked with a split gauze. Attention was then taken to the right axilla. It was again prepped and draped in the appropriate manner. The surgeon regowned and regloved. The necrotic area draining either purulent clear fluid or lymph was excised 10 x 4 x 3 cm. Hemostasis was obtained by electrocautery. Anaerobic and aerobic cultures were obtained. The wound was irrigated with peroxide and wound VAC was deployed with a satisfactory seal. There is further necrosis in the chest wall, but that appears to be more superficial than this deeper area. The patient will return to the operating room on 11/12 for further debridement and replacement of wound VAC. Hemodialysis will be started today. Overall prognosis is poor. She has family flying in from [place] and we will discuss code status with that family as they arrive. cc: Star Cope MD
[2016-11-10 17:12] LABS: CK-MB 26.2 ng/mL (0.0-5.0)
[2016-11-10 17:13] LABS: CK INDEX 0.9 (0.0-2.5); CK-MB 26.48 ng/mL (0.0-5.0)
[2016-11-10] MEDS ORDERED: NS 500 ML ONE (17:36)
[2016-11-10] MEDS ORDERED: SODIUM CHLORIDE 0.9% INJ SCH (18:00)
[2016-11-10] MEDS ORDERED: PROTONIX IV SCH (18:00)
[2016-11-10] MEDS ORDERED: SODIUM BICARBONATE 8.4% 100 MEQ in D5W 1,000 ML IV SCH (18:00)
[2016-11-10] MEDS ORDERED: 1/2 NS 1,000 ML IV ONE (18:03)
--- NOTE | 2016-11-10 18:04 | Diag Imaging Result Doc PS360 ---
US RENAL 2 (RETROPER) COMPLETE - 11/10/2016 INDICATION: flavia TECHNIQUE: COMPARISON: None FINDINGS: The kidneys and urinary bladder are normal. No hydronephrosis. There is a Ponce catheter in the urinary bladder. The right kidney measures 11.9 x 5 x 5 cm. The left kidney measures 10.6 x 4.4 x 4.9 cm. Cortex measures about 1 cm bilaterally. IMPRESSION: Negative exam. Electronically signed by Luke Hoover 11/10/2016 6:02 PM
[2016-11-10] MEDS: VANCOMYCIN 1 GM/NS 1 GM/250 ML IVPB IV SCH (18:13)
[2016-11-10] MEDS: PEPCID IV SCH (18:28)
[2016-11-10] MEDS: NS 500 ML IV SCH (18:28)
[2016-11-10] MEDS: CLINDAMYCIN 600 MG/NS 600 MG/50 ML IVPB IV SCH (18:30)
--- NOTE | 2016-11-10 18:46 | PROGRESS NOTE ---
DATE: 11/10/2016 CONCLUSION: Patient is seen postoperatively in the intensive care unit. The patient appears to have necrotizing fasciitis and she has just returned from surgery performed by Dr. Cope where he incised and drained areas and resected necrotic tissue. RECOMMENDATIONS: I agree with the decision to treat the patient with Zosyn and vancomycin the doses of which have been modified because the patient has developed acute renal failure. To this I have added clindamycin in order to decrease toxin production in the bacteria. DISCUSSION: The patient is intubated. She is unable provide a history. Her son is present but he had limited knowledge of her history. He told me that his mother was in excellent condition. She lived alone, did her own shopping and cleaning in the house. He talked to a week ago and she sounded like she was fine. According to the admission history and physical, the patient was found down at home. She apparently been unconscious for 5 days. She had developed severe pressure necrosis to the right arm with extension into the chest and back. She was taken to surgery by Dr. Cope as mentioned above. Gram stain of the material obtained at surgery showed white cells but no bacteria. Both blood cultures are growing gram positive cocci. The patient' s other laboratory studies include the following. [place] [address], hemoglobin 14.5 and platelet count of 175,000. Patient's creatinine is 7.1. The GFR is 6. Liver function studies show elevation of the AST to 60. The patient's CK was 2899. The patient's chest x-ray shows no infiltrates or effusions. CT scan of the upper extremity showed findings concerning for necrotizing fasciitis of the upper biceps muscle extending to the undersurface of the pectoralis muscles. There was diffuse subcutaneous edema around the right arm which could represent cellulitis or myositis. PAST SURGICAL HISTORY: Positive for bilateral knee surgery, cataract surgery, breast augmentation, cholecystectomy, skin cancer excision, bladder tack. REVIEW OF SYSTEMS: Was unobtainable from the patient but the son said his mother has decreased hearing. ALLERGIES: As far as he knew his mother did not have any drug allergies and this is corroborated by the findings on the chart that lists no known drug allergies. HOME MEDICATIONS: Include the following metformin, valsartan/ hydrochlorothiazide, Lasix, duloxetine, aspirin and Zocor. MEDICAL HISTORY: Positive for diabetes, hypertension and hyperlipidemia. PHYSICAL EXAMINATION: Vital Signs: Temperature 97, pulse 110, respirations 20, blood pressure 97/71. Patient is 5 feet 6 inches tall and weighs 195 pounds. General : This is an ill- appearing, elderly female. She is intubated and obtunded. Head, eyes, ears, nose, and throat: No drainage noted from the nose or ears. Neck: No meningismus. Thorax: Patient has large dressings on the chest and back. Lungs: Clear to auscultation. Cardiovascular : Regular heart rate. Diminished peripheral pulses. Extremities: The right arm has a dressing on it. The dressing is intact. There was bilateral leg edema. Abdomen: Soft and did not appear to be tender. Neurologic: As mentioned above, the patient is obtunded. Thank you for the consult. cc: Jhon Ortiz MD MTDD
[2016-11-10 18:58] LABS: PROTEIN CREAT RATIO 0.7; UR CREAT RANDOM 60.8 mg/dL (11-20); UR PROT RANDOM 43.5 mg/dL
[2016-11-10] MEDS: LEVOPHED 8 MG in D5 1/2 NS 250 ML IV SCH (20:06)
[2016-11-10 20:18] LABS: CK-MB 18.46 ng/mL (0.0-5.0)
[2016-11-10 21:27] LABS: HEMOGLOBIN 13.4 g/dL (12.0-16.0)
[2016-11-10] MEDS: 1/2 NS 1,000 ML IV SCH ×2 (21:45→22:51)
[2016-11-10] MEDS: DIPRIVAN 1% 1,000 MG/100 ML BOTTLE IV SCH (22:36)
[2016-11-10] MEDS: MORPHINE IV PRN (22:48)
[2016-11-11] MEDS: NS 1,000 ML IV SCH ×6 (01:14→22:56)
[2016-11-11] MEDS: CLINDAMYCIN 600 MG/NS 600 MG/50 ML IVPB IV SCH ×4 (01:14→19:12)
[2016-11-11] MEDS: HUMALOG SUBQ SCH ×6 (01:20→22:54)
[2016-11-11 02:30] LABS: CK INDEX 0.8 (0.0-2.5); CK-MB 12.34 ng/mL (0.0-5.0)
[2016-11-11] MEDS: ZOSYN 2.25 GM/NS 2.25 GM/50 ML IVPB IV SCH ×4 (03:51→22:56)
[2016-11-11 04:31] LABS: ALLEN TEST YES; BE -3.1 mmoll (-3.0-3.0); BLOOD TYPE ARTERIAL; DRAW SITE R RADIAL; METHB 1.2 % (0.0-1.5); O2(CT) 23.4 mL/dL (15.0-23.0); PCO2(98.6) 31 mmHg (35-45); PO2(98.6) 166 mmHg (60-100); SAMPLE BLOOD; SAO2 99.4 % (95.0-100.0); SRATE 12 BPM; THB 16.9 g/dL (11.5-17.4); TVOL 500 mL; pH(98.6) 7.42 (7.35-7.45)
[2016-11-11 04:32] LABS: MODALITY VENTILATOR
[2016-11-11 04:37] LABS: HEMATOCRIT 35.7 % (37.0-47.0); HEMOGLOBIN 12.3 g/dL (12.0-16.0); MCH 32.7 PG (27-31); MCHC 34.5 g/dL (33-37); MCV 94.9 FL (81-99); MPV 11.2 FL (7.4-10.4); RBC 3.76 XMIL (4.2-5.4)
--- NOTE | 2016-11-11 04:44 | CONSULTATION ---
DATE OF CONSULTATION: 11/10/2016 REQUESTING PHYSICIAN: Dr. Chu. REASON FOR CONSULTATION: Respiratory failure. HISTORY OF PRESENT ILLNESS: Ms. Miles is a 76-year-old white female, no history of tobacco use, who had not picked up her mail for several days. The patient was found lying on the floor. The patient was brought to the emergency room, with altered mental status. CT scan of the brain revealed no evidence of acute intracranial disease. The patient had a pressure injury to the right axilla and chest wall. The patient was in acute respiratory failure and acute renal failure, with evidence of rhabdomyolysis. The patient was evaluated by Surgery and taken to the operating room this afternoon for an area of necrotizing fasciitis. PAST MEDICAL HISTORY: 1. Diabetes mellitus. 2. Hypertension. 3. Dyslipidemia. 4. Cymbalta use for presumptive depression. SOCIAL HISTORY: No tobacco, alcohol, or drug use noted. PAST SURGICAL HISTORY: Notable for bilateral knee surgery, breast augmentation, status post cholecystectomy, skin cancer removal, and a bladder sling. FAMILY HISTORY: Noncontributory for current presentation. REVIEW OF SYSTEMS: Cannot be obtained. PHYSICAL EXAMINATION: General: Reveals an acutely ill-appearing white female, on mechanical ventilation. She is currently on Levophed for hypotension. Vital Signs: Blood pressure 97/71, heart rate 110, respiration rate 20, oxygen saturation 100% on 70% FiO2. HEENT: Pupils are equal and reactive. Oropharynx evaluation is limited. Tracheal tube in place. Neck: Supple. Chest: Reveals good air entry bilaterally. There is an anaerobic smell at the surgical site, which is covered in a dressing at the right axilla, and joining the right chest wall. Heart: Distant heart sounds. Normal S1, normal S2. Abdomen: Soft, without bowel sounds present. Extremities: Cold to the touch. LABORATORY STUDIES: Chest x-ray reveals endotracheal tube in good position. No acute infiltrates. Arterial blood gas reveals pH 7.36, pCO2 of 24, PO2 of 173, with a lactate of 3.6. Chemistries: Sodium 150, potassium 3.8, chloride 110, bicarbonate 16, BUN 181, creatinine 7.1. CPK is 2495. IMPRESSION: A 76-year-old white female, with altered mental status, necrotizing fasciitis, sepsis, acute hypoxemic respiratory failure, acute renal failure, [id number] malnutrition, with decreased BUN, and diabetes mellitus. With multiple issues outlined above, her prognosis is [id number]. RECOMMENDATIONS: 1. Aggressive antibiotic treatment, as per Dr. Ortiz. 2. CVP monitoring to check central venous pressures. 3. Augment diabetes control with q.4 hours blood sugar checks. 4. Gastric acid suppression. The patient also has stress gastritis, with dark coffee-ground material in her NG tube, which was not mentioned above. 5. Hemodialysis, as indicated per Dr. Chu. 6. Additional surgical intervention if indicated, as per Dr. Cope. 7. Additional recommendations pending hospital course. I have spoken with the son, who has flown in from [place]. He is aware that she is critically ill. cc: Serge Ba MD
[2016-11-11 05:19] LABS: ALBUMIN 1.8 g/dL (3.5-5.0); CALCIUM 7.2 mg/dL (8.8-10.2); POTASSIUM 3.3 mmol/L (3.5-5.1); TOTAL BILIRUBIN 0.46 mg/dL (0.20-1.00); TOTAL PROTEIN 4.4 g/dL (6.3-8.3)
[2016-11-11] MEDS: PEPCID IV SCH ×2 (05:37→17:41)
[2016-11-11] MEDS: SODIUM CHLORIDE 0.9% INJ SCH (05:37)
[2016-11-11 06:03] LABS: CK INDEX 0.8 (0.0-2.5); CK-MB 10.45 ng/mL (0.0-5.0)
--- NOTE | 2016-11-11 06:32 | EKG Report ---
Test Performed on : 11/11/2016 05:55:39 AM Test Reason : sepsis Blood Pressure : / mmHG Vent. Rate : 101 BPM Atrial Rate : 101 BPM P-R Int : 166 ms QRS Dur : 102 ms QT Int : 362 ms P-R-T Axes : 058 105 031 degrees QTc Int : 469 ms Sinus tachycardia. Rightward axis Low voltage QRS Cannot rule out Inferior infarct , age undetermined T wave abnormality, consider anterior ischemia Abnormal ECG When compared with ECG of 09-NOV-2016 16:03, QRS duration has increased Nonspecific T wave abnormality, worse in Inferior leads T wave inversion now evident in Anterior leads Confirmed by True OSMAN, Nnamdi Olguin ([id number]) on 11/11/2016 3:00:43 PM
[2016-11-11] MEDS ORDERED: HEPARIN ONE (07:22)
[2016-11-11] MEDS ORDERED: NS 2,000 ML ONE (07:22)
--- NOTE | 2016-11-11 07:25 | Diag Imaging Result Doc PS360 ---
CHEST-PORTABLE - 11/11/2016 INDICATION: respiratory failure TECHNIQUE: COMPARISON: 11/10/2016 FINDINGS: Support lines and tubes are stable and in good position. The lungs are clear. Heart size is normal. No pneumothorax or large effusion. IMPRESSION: No acute disease or complication. Electronically signed by Luke Hoover 11/11/2016 7:23 AM
[2016-11-11 08:00] LABS: ALLEN TEST YES; BE -3.9 mmoll (-3.0-3.0); BLOOD TYPE ARTERIAL; DRAW SITE L RADIAL; METHB 0.8 % (0.0-1.5); O2(CT) 17.8 mL/dL (15.0-23.0); PCO2(98.6) 27 mmHg (35-45); PO2(98.6) 149 mmHg (60-100); SAMPLE BLOOD; SAO2 100.1 % (95.0-100.0); SRATE 12 BPM; THB 12.7 g/dL (11.5-17.4); TVOL 500 mL; pH(98.6) 7.45 (7.35-7.45)
[2016-11-11 08:01] LABS: MODALITY VENTILATOR
[2016-11-11] MEDS: LANTUS SUBQ SCH (08:52)
[2016-11-11] MEDS: DIPRIVAN 1% 1,000 MG/100 ML BOTTLE IV SCH ×3 (08:53→17:55)
--- NOTE | 2016-11-11 09:20 | PROGRESS NOTE ---
DATE: 11/11/2016 SUBJECTIVE: This patient is still on mechanical ventilation and sedated. Yesterday, this patient had a procedure done by surgery. They placed a Vas-Cath and also they did an incision and drainage, and placement of a wound VAC on the right axilla. This patient is still on pressors. Pulmonary department, surgery department, infectious disease department, and nephrology are on board. Because of the kidney injury, this patient has been on dialysis. OBJECTIVE: Vital Signs: Temperature 97 degrees, pulse 84, respiratory rate 13, blood pressure 113/63, oxygen saturation 100% on mechanical ventilation, 100% FiO2. HEENT: Head normocephalic. No trauma. PERRLA. Neck: Supple. No JVD. No masses. Central trachea. Chest: There is an incision in the right axilla that is covered by a wound VAC. Serosanguineous material is coming out from this wound. Decreased breath sounds. Cardiovascular: RRR. Abdomen: Soft, obese, nontender, nondistended. Extremities: Trace lower extremity edema. Right arm edema. Neurological Examination: The patient is sedated and intubated. Laboratory: WBC 18.6, hemoglobin 12.3, hematocrit 35.7, platelets 140,000. Sodium 146, potassium 3.3, chloride 112, bicarbonate 18, BUN 77, creatinine 3.5, glucose 164, calcium 7.2. CK 1514. Albumin 1.8. ASSESSMENT AND PLAN: 1. Necrotizing fasciitis. Dr. Cope is taking care of this patient. He did and incision and placed a wound VAC yesterday in the right axilla. The plan is to go again for more debridement tomorrow. We will continue following his recommendations. Infectious disease department is also on board. 2. Sepsis, likely secondary to necrotizing fasciitis and urinary tract infection. Infectious disease department is following this patient. We have a positive urine culture that showed gram-negative rods and positive blood culture that showed gram-positive cocci. 3. Acute kidney injury, likely secondary to rhabdomyolysis, dehydration. Continue with dialysis as per nephrology. 4. Rhabdomyolysis. We will continue with the same management for now. This patient is getting dialysis. 5. Anion gap metabolic acidosis, multifactorial, secondary to kidney injury and lactic acid. 6. Urinary tract infection. Continue with the same management. 7. This patient is critically ill. No family members at the bedside. For now, she will continue full code. CRITICAL CARE TIME: 35 minutes. cc: Raul Ahuja MD
--- NOTE | 2016-11-11 09:49 | PROGRESS NOTE ---
DATE: 11/11/2016 SUBJECTIVE: She is sedated on the ventilator. OBJECTIVE: Vital Signs: Blood pressure 113/63, heart rate 84, respirations 13, afebrile. Intake 6 L. Output 2.3 L, with 400 mL by dialysis and 1.7 L by urine output General: She is in no acute distress. Her eyes are open. It is not clear to me that she followed commands. She did move her left arm spontaneously but does not move her right arm. Skin: Warm and dry. HEENT: Conjunctivae are pink. Oropharynx is dry. Neck: Neck veins not appreciated. Heart: Sounds are distant. Lungs: Have equal breath sounds. Coarse, but no crackles. Tube noises present. Abdomen: Soft, obese, and diminished bowel sounds. Extremities: Have trace edema. No clubbing or cyanosis. LABORATORY DATA: Sodium 146, potassium 3.3, chloride 112, bicarbonate 18. BUN 77, creatinine 3.5. Hemoglobin 12.3. IMPRESSION: 1. Acute kidney injury. She tolerated dialysis well yesterday. We will plan for SLED again today with a 4 potassium bath, 27 bicarbonate. 2. Hypotension. She has been treated with aggressive volume resuscitation. Blood pressure is improved. She is still on Levophed. Will target just 1 L of negative on her dialysis today. Urine output is actually good. 3. Electrolytes, improved. 4. Hypernatremia, improved. Potassium is acceptable. 5. Acid-base, improved. Her bicarbonate is 18, pH 7.45. No changes. cc: Vidal Chu MD
[2016-11-11 10:30] LABS: HEPATITIS PROFILE ACUTE SEE COMMENTS
[2016-11-11] MEDS: LEVOPHED 8 MG in D5 1/2 NS 250 ML IV SCH ×2 (11:26→20:28)
--- NOTE | 2016-11-11 13:05 | CONSULTATION ---
DATE OF CONSULTATION: 11/11/2016 HISTORY AND REASON FOR CONSULTATION: For evaluation of this patient with upper GI bleed. HISTORY OF PRESENT ILLNESS: This is a 76-year-old lady, who was found to be unresponsive in her apartment. Apparently she was lying on the couch with arm underneath her, and the landlord had to go in because she was not picking up her mail for a few days. It is not known how long she had been in that state. When she was brought to the emergency room, her blood pressure was 61/52. She was in shock and possibly in a coma. The patient had a CT scan of the head performed which did not reveal any acute bleed or any acute changes. She was intubated. She was also found to have fasciitis in the medial aspect of the right upper arm extending to the chest. Dr. Cope had made some attempt to debride it. There is the possibility of a compartment syndrome there with infection and sepsis. After the patient was intubated, an NG-tube was placed which brought out coffee-ground material in the beginning, and currently there is a small amount of reddish blood. Therefore, Dr. Cope told me to have a look at her to see if anything needs to be done from a GI point of view. I have reviewed the patient's chart and understood what was going on with her. She has gone into acute renal failure secondary to possibly sepsis and severe dehydration, rhabdomyolysis, and at this point she is in a coma. She also has diabetes mellitus with significant ketoacidosis. The kidney failure is probably secondary to multiple factors. PAST MEDICAL HISTORY: Family is not available to give a history. Therefore, what I could gather is that she has history of diabetes mellitus. It is not known whether she had renal insufficiency or renal failure in the past. ALLERGIES: No known drug allergies. SOCIAL HISTORY: She lives alone. FAMILY HISTORY: Not obtainable. REVIEW OF SYSTEMS: Not obtainable at this point. I see only a small amount of reddish blood in the NG-tube. PHYSICAL EXAMINATION: General: The patient is in a coma. Vital Signs: The temperature is 97.0 degrees, pulse is 84 per minute, respiratory rate is 13 on the vent. The blood pressure is 113/63. Extremities: The right upper extremity is swollen with some petechiae on the arms and forearm. She is not really responding to any colonization. Neck: Supple. Cardiac: Heart sounds are normal with normal rhythm. Lungs: Have equal breath sounds, but shallow with a few crackles in the bases. Abdomen: Soft. I could not elicit any tenderness. A few bowel sounds are heard. Extremities: Slight edema of both lower extremities. LAB DATA: At the time of arrival, her WBC count was 25.45; it has dropped to 18.60. Her hemoglobin was 16.8 and just dropped to 12.3 now. Hematocrit was 49.9 and just dropped to 35.7. This is probably secondary to fluid resuscitation. The platelet count dropped from 301 to 140. Pro time 12.4, INR of 1.17. Her sodium was 150 and currently it is 146. Potassium was 3.8, currently it is 3.3. Chloride is 110 and currently it is 112. On arrival the BUN was 201 and currently it is 77. Creatinine was 8 and currently it is 3.5. Glucose was 527, currently it is 164. The hemoglobin A1C was 6.5. Her bicarbonate was 20 on arrival and currently it is 18. AST and ALT are still slightly elevated at 48 and 36, alkaline phosphatase is normal. The creatine kinase was 1079 on arrival and currently it is 1514. The albumin was 3.6, currently it is 1.8. Urine showed WBCs too numerous to count and RBCs 10-20. IMPRESSION: 1. Minor upper gastrointestinal bleed, probably stress related. 2. Sepsis. 3. Metabolic acidosis. 4. Acute kidney injury with acute renal failure. 5. Diabetes mellitus. 6. Metabolic acidosis. RECOMMENDATIONS: At this point, I do not believe there is any need for GI interference. Prognosis very poor. No endoscopy is needed for her. I discussed with Dr. Cope and Dr. Samuel, in case she has a significant GI bleed, only endoscopy is needed. Therefore, GI will standby. cc: MD Vidal Albarran MD Omar J. Sosa-Chirinos, MD
--- NOTE | 2016-11-11 13:29 | Diag Imaging Result Doc PS360 ---
CHEST-PORTABLE - 11/11/2016 at 1310 INDICATION: RIJ cvl placement TECHNIQUE: COMPARISON: 0510 FINDINGS: There is a new right internal jugular central venous line in good position with the catheter tip at the lower SVC. Stable endotracheal tube, nasogastric tube, and left dialysis catheter. The lungs are grossly clear. Heart size is normal. Pulmonary vascularity is grossly normal. No pneumothorax or large effusion. IMPRESSION: No complication. Electronically signed by Luke Hoover 11/11/2016 1:26 PM
[2016-11-11] MEDS: ALBUMIN 25% IV SCH ×3 (14:45→20:32)
[2016-11-11] MEDS: VANCOMYCIN 1 GM/NS 1 GM/250 ML IVPB IV SCH (16:00)
--- NOTE | 2016-11-11 16:57 | PROGRESS NOTE ---
DATE: 11/11/2016 PRESENT ILLNESS: The patient is postop surgery performed by Dr. Kramer for the patient's necrotizing fasciitis. MEDICATIONS: The patient currently is receiving a combination of vancomycin and Zosyn. PHYSICAL EXAMINATION: Vital Signs: Temperature 97.9 degrees, pulse 57, respirations 20, blood pressure 144/49. Generally: This is an ill-appearing, elderly female. She is intubated and sedated. Lungs: Clear to auscultation. Cardiovascular: Regular heart rate. Abdomen: Soft and nontender. Integument: The patient's arm and chest wounds have a clear yellow fluid discharge. The dressings on these wounds are intact. LABORATORY AND X-RAY: The patient's urine is growing Escherichia coli. Chest x -ray shows clear lung sotelo. CBC shows a white count of 18,600, hemoglobin 12.3, and platelet count 140,000. Creatinine is 3.5, GFR is 13. Blood gases show a pH of 7.45, a PO2 of 149, a pCO2 of 27. Liver function studies are normal except for an AST of 48. Hepatitis panel is nonreactive. Blood cultures are growing gram positive cocci. Gram stain of the wound culture taken shows no bacteria. ASSESSMENT AND PLAN: 1. The patient is postop surgery for necrotizing fasciitis. She has multiple systems failure. She today has shown definite improvement. My plan would be to continue with current antibiotic regimen pending culture results. The patient is to be taken back to surgery tomorrow by Dr. Kramer. 2. Comorbidities: She is elderly. She was found down at her home and suffered a lot of pressure necrosis to her arms, chest and back. She is a diabetic. cc: Jhon Ortiz MD [facility]
[2016-11-11] MEDS: NS 500 ML IV SCH (17:41)
[2016-11-12] MEDS: ALBUMIN 25% IV SCH (01:11)
[2016-11-12] MEDS: HUMALOG SUBQ SCH ×6 (01:16→22:08)
[2016-11-12] MEDS: CLINDAMYCIN 600 MG/NS 600 MG/50 ML IVPB IV SCH ×3 (01:54→17:49)
[2016-11-12] MEDS: ZOSYN 2.25 GM/NS 2.25 GM/50 ML IVPB IV SCH ×4 (04:36→22:05)
[2016-11-12 04:58] LABS: ALLEN TEST YES; BE 0.7 mmoll (-3.0-3.0); BLOOD TYPE ARTERIAL; DRAW SITE R RADIAL; METHB 1.4 % (0.0-1.5); O2(CT) 7.7 mL/dL (15.0-23.0); PCO2(98.6) 30 mmHg (35-45); PO2(98.6) 135 mmHg (60-100); SAMPLE BLOOD; SAO2 99.7 % (95.0-100.0); SRATE 12 BPM; THB 5.4 g/dL (11.5-17.4); TVOL 500 mL; pH(98.6) 7.51 (7.35-7.45)
[2016-11-12 05:02] LABS: MODALITY VENTILATOR
[2016-11-12] MEDS: DIPRIVAN 1% 1,000 MG/100 ML BOTTLE IV SCH (05:29)
[2016-11-12] MEDS: PEPCID IV SCH ×2 (06:00→17:49)
[2016-11-12] MEDS: NS 1,000 ML IV SCH ×2 (06:00→13:46)
[2016-11-12] MEDS: SODIUM CHLORIDE 0.9% INJ SCH (06:00)
--- NOTE | 2016-11-12 06:15 | Diag Imaging Result Doc PS360 ---
EXAM: CHEST-PORTABLE HISTORY: rule out [place] TECHNIQUE: Portable COMPARISON: 11/11/2016 FINDINGS: No change in the right jugular line, the endotracheal tube, or in the nasogastric tube. No change in the double lumen left subclavian line. The heart is not enlarged. The vessels are not distended. Infiltrates or atelectasis in the left base. IMPRESSION: Stable chest. Electronically signed by Constantino Monahan 11/12/2016 6:13 AM
[2016-11-12 06:22] LABS: BASO% 0.6 % (0.0-0.8); EOS# 0.24 X1000 (0.0-0.7); EOS% 1.8 % (0.0-10.0); HEMATOCRIT 26.8 % (37.0-47.0); HEMOGLOBIN 8.8 g/dL (12.0-16.0); IMM GRAN# 0.71 X1000 (0.0-0.04); IMM GRAN% 5.3 % (0.0-0.5); LYMPH% 9.7 % (20.5-51.1); MCH 31.9 PG (27-31); MCHC 32.8 g/dL (33-37); MCV 97.1 FL (81-99); MONO% 4.5 % (1.7-9.3); MPV 10.5 FL (7.4-10.4); NEUT% 78.1 % (42.2-75.2); PLT 86 X1000 (130-400); RBC 2.76 XMIL (4.2-5.4)
[2016-11-12 06:24] LABS: ALBUMIN 3.1 g/dL (3.5-5.0); CALCIUM 8.1 mg/dL (8.8-10.2); POTASSIUM 3.1 mmol/L (3.5-5.1); TOTAL BILIRUBIN 0.75 mg/dL (0.20-1.00)
[2016-11-12 06:25] LABS: MANUAL DIFF NEEDED? NO
--- NOTE | 2016-11-12 06:35 | EKG Report ---
Test Performed on : 11/12/2016 05:57:29 AM Test Reason : rule out [place] Blood Pressure : / mmHG Vent. Rate : 069 BPM Atrial Rate : 069 BPM P-R Int : 182 ms QRS Dur : 088 ms QT Int : 424 ms P-R-T Axes : 068 086 035 degrees QTc Int : 454 ms Normal sinus rhythm. Junctional ST depression, probably normal Borderline ECG When compared with ECG of 11-NOV-2016 05:55, Minimal criteria for Inferior infarct are no longer present T wave inversion no longer evident in Anterior leads Confirmed by True OSMAN, Nnamdi Olguin ([id number]) on 11/12/2016 11:18:04 AM
[2016-11-12] MEDS: LANTUS SUBQ SCH (08:00)
[2016-11-12] MEDS ORDERED: SODIUM CHLORIDE 0.9% 10 ML ONE (09:17)
[2016-11-12] MEDS ORDERED: NEO-SYNEPHRINE ONE (09:17)
[2016-11-12] MEDS ORDERED: EPHEDRINE ONE (09:23)
--- NOTE | 2016-11-12 11:16 | PROGRESS NOTE ---
DATE: 11/12/2016 SUBJECTIVE: She remains obtunded on sedation. OBJECTIVE: Vital Signs: Blood pressure 145/66, heart rate 85, respiration 18, afebrile. Intake 4.7 L; output 2.8 L. Urine output of 1.9 L. General: On physical exam, no acute distress. Obtunded. Skin: Warm and dry. Wounds are dressed. She is weeping from her wounds. Neck: Neck veins are not distended. Eyes: Pupils are equal. Heart: Regular. Lungs: Have equal breath sounds. A few scattered crackles. Abdomen: Soft, nontender with decreased bowel sounds. Extremities: Have 1+ edema. No clubbing or cyanosis. LABS: Sodium 147, potassium 3.1, chloride 110, bicarbonate 21, BUN 28, creatinine 2.1, hemoglobin 8.8. IMPRESSION: 1. Acute kidney injury. Good urine output and her labs are acceptable today, so I will withhold dialysis today to observe her level of intrinsic renal function. It is likely that she will need more dialysis, however. Electrolytes and acid-base are acceptable today. 2. Anemia. Her hemoglobin has dropped several points over the last 24 hours. I believe she was markedly volume contracted and hemoconcentrated, and so I do not have any reason to believe that she has active bleeding. We will continue to monitor this and transfuse as needed. 3. Septic shock. She is doing much better overall in the sense that she has no current pressor requirements, and her blood pressure is in target. Continue antibiotics. She has a planned surgical re-look today. cc: Vidal Chu MD
[2016-11-12] MEDS: MORPHINE IV PRN (13:46)
[2016-11-12] MEDS: ATIVAN IV PRN (13:47)
--- NOTE | 2016-11-12 14:00 | Extremity Venous Study ---
PROCEDURE NAME: Venous U/S Right Arm - 11/09/2016 DATE OF STUDY: 11/09/2016. REFERRING PHYSICIAN: Dr. Cook. READING PHYSICIAN: Dr. Diamond. DATABASE MARKETING SPECIALIST: Nicolasa. INDICATION: Severe swelling and bruising of the right arm. HISTORY: The patient was found unresponsive lying on the right arm. The images are limited secondary to severe edema. FINDINGS: The right internal jugular vein was compressible and patent and without thrombus. The subclavian vein appears to be patent without thrombus and with forward flow. The axillary vein is difficult to assess, but likely has acute thrombus. The brachial vein could not be seen secondary to severe edema. The cephalic vein in the upper arm was compressible and patent. In the forearm, however, it is not compressible. The basilic vein likewise is thrombosed and not compressible, both in the forearm and upper arm. The left subclavian vein appears normal. INTERPRETATION: Likely acute deep vein thrombosis of the right axillary vein. There is also acute superficial thrombosis of the right basilic vein, median cubital vein and cephalic veins in the forearm. cc: MD Kd Davis MD
--- NOTE | 2016-11-12 14:10 | OPERATIVE NOTE ---
PROCEDURE DATE: 11/12/2016 DIAGNOSIS: Skin and subcu necrosis right chest wall and axilla from previous undocumented fall and unconsciousness for 5 days. PROCEDURE: Exchange wound vacuum-assisted closure right axilla with replacement at the old 8 x 4 x 3 area. There was further skin necrosis on the right chest wall that was excised 23 x 7 x 3 cm with a new wound VAC strip being placed there with a bridge between the 2 areas. DESCRIPTION OF PROCEDURE: The patient brought to the operating room. She remains on the ventilator. She was turned onto her left side. Her right chest wall and axilla were prepped and draped in the appropriate manner after wound VAC removal. There appeared to be satisfactory granulation in the axilla with no further necrosis. The long stripe on the right chest wall revealed further necrosis and it was excised down to and including necrotic muscle and subcutaneous tissue. This new area was 23 x 7 x 3 cm. A new wound VAC was deployed with a bridge between the 2 areas. A satisfactory seal was obtained. The patient was turned back onto her back, transferred back to intensive care unit remaining on the ventilator. ESTIMATED BLOOD LOSS: Was about 50 mL. cc: Star Cope MD
--- NOTE | 2016-11-12 14:23 | PROGRESS NOTE ---
DATE: 11/12/2016 SUBJECTIVE: This patient is still on mechanical ventilation and sedated. Today she went for a new procedure. She went to the OR for more cleaning and debridement and new placement of a wound VAC at the level of the right axilla. Family members at the bedside including her son. She is not going to be dialyzed today. She is getting at this moment one PRBC. I will ask for a new CBC and BMP in 4 hours. We will monitor. OBJECTIVE: Vital Signs: Temperature 96.8 degrees, pulse 70, respiratory rate 14, blood pressure 107/51, O2 saturation 100% on mechanical ventilation 40% FiO2. HEENT: Head normocephalic. No trauma. PERRLA. Neck: Supple. No JVD. No masses. Central trachea. Chest: There is an incision in the right axilla that is covered by a wound VAC. Serosanguineous material is coming from this wound. Decreased breath sounds. Cardiovascular: RRR. Abdomen: Soft, obese, nontender, nondistended. Extremities: Trace lower extremity edema. Right arm edema. Neurological: The patient is sedated and intubated. LABORATORY: WBC 13.4, hemoglobin 8.8, hematocrit 26.8, platelets 86,000. Sodium 147, potassium 3.1, chloride 110, bicarbonate 21, BUN 28, creatinine 2.1. Glucose 86, calcium 8.1, phosphorus 2.1. Albumin 3.1. ASSESSMENT AND PLAN: 1. Necrotizing fasciitis. Dr. Cope took this patient today again to the OR for more debridement and new placement of wound VAC. We will continue to follow his recommendations. Infectious Disease Department is also on board. 2. Sepsis. She has she has not been on pressors today. This is likely secondary to her necrotizing fascitis and possible urinary tract infection. We will continue with the antibiotics. 3. Acute kidney injury, likely secondary to rhabdomyolysis/dehydration. Continue with dialysis as per Nephrology. Today she will not get dialysis and the urine output has been so far acceptable but probably she will need more dialysis in the near future. 4. Anion gap metabolic acidosis. Continue to monitor. 5. UTI. Continue with the same management. 6. Respiratory failure, continue with mechanical ventilation. CRITICAL CARE TIME: 40 minutes. cc: Raul Ahuja MD
--- NOTE | 2016-11-12 17:20 | PROGRESS NOTE ---
DATE: 11/12/2016 PRESENT ILLNESS: The patient is postop surgery performed today by Dr. Cope for the patient's necrotizing fasciitis. MEDICATIONS: Patient is receiving a combination of vancomycin and Zosyn. PHYSICAL EXAMINATION: Vital Signs: Temperature is 96.8 degrees, pulse 70, respirations 14, blood pressure 107/51. Generally: This is an ill-appearing, elderly female. She is intubated and sedated. Cardiovascular: Heart rate is regular. Abdomen: Soft and nontender. Lungs: Clear to auscultation. Thorax and Arm: The patient's wounds are dressed, the VAC is on the patient's wounds that I could see. LAB AND X-RAY: The patient's chest x-ray shows left lower lobe infiltrate and/ or atelectasis. CBC shows a white count of 13,430, hemoglobin 8.8, platelet count 86,000. Blood gases show a pH of 7.51, PO2 of 135, pCO2 of 30. Creatinine is 2.1. The GFR is 23. Hepatitis panel is nonreactive. The patient's 1 of 2 blood cultures is growing Staph warneri. The patient's right axilla is growing a gram positive coccus which has not yet been identified. ASSESSMENT AND PLAN: Patient is postop surgery for necrotizing fasciitis. She has multiple systems organs failure. The patient has a staphylococcal bacteremia which originates from her wound. My plan will be to continue her current antibiotic regimen pending culture results. COMORBIDITIES: She is elderly, she is a diabetic, and she was found down at her home for anywhere from 3-5 days. cc: Jhon Ortiz MD [facility]
[2016-11-12] MEDS: NS 500 ML IV SCH (17:50)
[2016-11-12] MEDS: D10W 1,000 ML IV SCH (18:39)
[2016-11-12 20:55] LABS: CALCIUM 7.8 mg/dL (8.8-10.2); POTASSIUM 3.9 mmol/L (3.5-5.1)
[2016-11-13] MEDS: CLINDAMYCIN 600 MG/NS 600 MG/50 ML IVPB IV SCH ×3 (01:13→17:23)
[2016-11-13] MEDS: HUMALOG SUBQ SCH ×7 (01:21→21:32)
[2016-11-13] MEDS: ZOSYN 2.25 GM/NS 2.25 GM/50 ML IVPB IV SCH ×4 (03:24→21:24)
[2016-11-13] MEDS: MORPHINE IV PRN ×2 (03:37→15:20)
[2016-11-13] MEDS: ATIVAN IV PRN (03:37)
[2016-11-13 04:32] LABS: ALLEN TEST YES; BLOOD TYPE ARTERIAL; DRAW SITE R RADIAL; METHB 1.3 % (0.0-1.5); PCO2(98.6) 34 mmHg (35-45); PO2(98.6) 155 mmHg (60-100); SAMPLE BLOOD; SAO2 99.7 % (95.0-100.0); SRATE 12 BPM; THB 15.2 g/dL (11.5-17.4); TVOL 500 mL; pH(98.6) 7.43 (7.35-7.45)
[2016-11-13 04:33] LABS: MODALITY VENTILATOR
[2016-11-13] MEDS: D10W 1,000 ML IV SCH (04:41)
[2016-11-13] MEDS: SODIUM CHLORIDE 0.9% INJ SCH (05:12)
[2016-11-13] MEDS: PEPCID IV SCH ×2 (05:15→17:23)
[2016-11-13 05:36] LABS: HEMATOCRIT 30.6 % (37.0-47.0); HEMOGLOBIN 10.3 g/dL (12.0-16.0); MCH 32.1 PG (27-31); MCHC 33.7 g/dL (33-37); MCV 95.3 FL (81-99); MPV 10.1 FL (7.4-10.4); RBC 3.21 XMIL (4.2-5.4)
[2016-11-13 06:34] LABS: ALBUMIN 2.5 g/dL (3.5-5.0); CALCIUM 7.9 mg/dL (8.8-10.2); POTASSIUM 2.9 mmol/L (3.5-5.1); TOTAL BILIRUBIN 0.96 mg/dL (0.20-1.00); TOTAL PROTEIN 4.9 g/dL (6.3-8.3)
--- NOTE | 2016-11-13 07:14 | Diag Imaging Result Doc PS360 ---
EXAM: CHEST-PORTABLE HISTORY: respiratory failure TECHNIQUE: AP portable at 0500 COMMENT: There is atelectasis versus pneumonia in the left lower lobe behind the heart. This was also present on 11/12/2016. The endotracheal tube remains at the thoracic inlet and an NG tube passes below the diaphragm. There is a right internal jugular and left internal jugular catheter both in the superior vena cava. IMPRESSION: Atelectasis versus pneumonia left lower lobe, stable. Electronically signed by Arnoldo Wray 11/13/2016 7:12 AM
[2016-11-13] MEDS ORDERED: NS 2,000 ML ONE (07:16)
[2016-11-13] MEDS ORDERED: HEPARIN ONE (07:16)
[2016-11-13] MEDS ORDERED: POTASSIUM CHLORIDE 40 MEQ/SWI 40 MEQ/100 ML IVPB IV ONE (08:11)
[2016-11-13 09:27] LABS: ALLEN TEST YES; BE -0.5 mmoll (-3.0-3.0); BLOOD TYPE ARTERIAL; DRAW SITE L RADIAL; METHB 1.2 % (0.0-1.5); O2(CT) 15.8 mL/dL (15.0-23.0); PCO2(98.6) 32 mmHg (35-45); PO2(98.6) 156 mmHg (60-100); SAMPLE BLOOD; SAO2 99.5 % (95.0-100.0); THB 11.3 g/dL (11.5-17.4); pH(98.6) 7.46 (7.35-7.45)
[2016-11-13] MEDS: NS 1,000 ML IV SCH (09:27)
[2016-11-13] MEDS: LANTUS SUBQ SCH (09:27)
[2016-11-13 09:28] LABS: MODALITY VENTILATOR
--- NOTE | 2016-11-13 10:38 | PROGRESS NOTE ---
DATE: 11/13/2016 SUBJECTIVE: This patient is still on mechanical ventilation and sedated. Yesterday she had a procedure, Surgery Department did a debridement of the right axilla and also part of the right upper lateral thoracic area. They placed again a new wound VAC. Today, the potassium is low; I will replace it. Also we will start this patient on TPN. No family members at the bedside. OBJECTIVE: Vital Signs: Temperature 97 degrees, pulse 88, respiratory rate 18, blood pressure 155/84, oxygen saturation 100% on mechanical ventilation. HEENT: Head normocephalic. No trauma. PERRLA. Neck: Supple. No JVD. No masses. Central trachea. Chest: There is a wound VAC with dressing at the level of the right axilla and lateral upper part of the thorax. Serosanguineous material is coming from this wound. Decreased breath sounds. Cardiovascular: RRR. Abdomen: Soft, obese, nondistended. Extremities: 2+ lower extremity edema, right arm edema. Neurological examination: The patient is sedated and intubated. LABORATORY: WBC 17.1, hemoglobin 10.3, hematocrit 30.6, platelet 103. Sodium 146, potassium 2.9, chloride 110, bicarbonate 21, BUN 30, creatinine 2.1, glucose 167, calcium 7.9, phosphorus 2.6, albumin 2.5. ASSESSMENT AND PLAN: 1. Necrotizing fasciitis. Dr. Cope took this patient yesterday to the operating room for more debridement annual placement of wound VAC. We will continue to follow his recommendations. Infectious Disease Department is taking care of this patient as well. 2. Sepsis. She has been off pressors. This is likely secondary to her necrotizing fasciitis and possible urinary tract infection. Blood culture showed Staphylococcus warneri, and urine culture showed Escherichia coli and wound culture showed Staphylococcus epidermidis. We will continue with the same management. 3. Acute kidney injury. This is likely secondary to rhabdomyolysis, dehydration and shock. Continue with dialysis as per nephrology, the urine output has been getting better. 4. Urinary tract infection. Continue with the same management. 5. Respiratory failure. Continue with mechanical ventilation. 6. Hypokalemia. I will replace the potassium today. 7. Nutritional status. We are going to start this patient on total parenteral nutrition. CRITICAL CARE TIME: 35 minutes. cc: Raul Ahuja MD
[2016-11-13] MEDS ORDERED: D10W 1,000 ML IV SCH (11:45)
[2016-11-13] MEDS ORDERED: ROMAZICON IV ONE (13:14)
[2016-11-13] MEDS: 1: D50W 500 ML, AMINOSYN 10% 500 ML with TPN ELECTROLYTES 20 ML, CALCIUM GLUCONATE 5 MEQ IV SCH ×11 (13:31)
[2016-11-13] MEDS: LIPOSYN 20% 500 ML IV SCH (13:31)
--- NOTE | 2016-11-13 14:11 | PROGRESS NOTE ---
DATE: 11/13/2016 SUBJECTIVE: She is awake. She is on CPAP trial and does respond. OBJECTIVE: Vital Signs: Blood pressure 155/84, heart rate 80, respirations 17, afebrile. Intake 3.4 L. Output 1.3 L. PHYSICAL EXAM: General Appearance: No acute distress. Skin: Warm and dry. Wound VACs on the left upper chest and arm. Conjunctivae are pink. Oropharynx is moist. Neck: Veins are not distended. Heart: Regular. No gallops or rubs. Lungs: Have equal excursion, equal breath sounds. No crackles. Abdomen: Soft, nontender. Bowel sounds are diminished. Extremities: Have trace edema. No clubbing or cyanosis. LABORATORY DATA: Sodium 146, potassium 2.9, chloride 110, bicarbonate 21, BUN 30, creatinine 2.1. Hemoglobin 10.3. IMPRESSION: 1. Acute kidney injury. Her creatinine has been stable or declining with no dialysis over the last 48 hours. 2. Electrolytes: Hypokalemia has been treated by the primary team. 3. Acid base acceptable. 4. Respiratory failure. On CPAP trial. 5. Anemia. She had 1 unit packed red blood cells yesterday and had an appropriate rise in her hemoglobin. cc: Vidal Chu MD
[2016-11-13] MEDS: NS 500 ML IV SCH (18:31)
[2016-11-13 21:27] LABS: BASO% 0.7 % (0.0-0.8); EOS# 0.48 X1000 (0.0-0.7); EOS% 2.4 % (0.0-10.0); HEMATOCRIT 34.8 % (37.0-47.0); HEMOGLOBIN 11.9 g/dL (12.0-16.0); IMM GRAN# 1.47 X1000 (0.0-0.04); IMM GRAN% 7.3 % (0.0-0.5); LYMPH# 1.17 X1000 (1.2-3.4); LYMPH% 5.8 % (20.5-51.1); MANUAL DIFF NEEDED? YES; MCH 32.5 PG (27-31); MCHC 34.2 g/dL (33-37); MCV 95.1 FL (81-99); MONO# 0.98 X1000 (0.11-0.59); MONO% 4.9 % (1.7-9.3); MPV 9.9 FL (7.4-10.4); NEUT% 78.9 % (42.2-75.2); PLT 147 X1000 (130-400); RBC 3.66 XMIL (4.2-5.4)
[2016-11-13 21:53] LABS: BANDS 1 % (0-1); EOS 5 % (1-10); LYMPHS 5 % (21-51); MONO 4 % (1-9)
[2016-11-14] MEDS: HUMALOG SUBQ SCH ×6 (01:23→20:19)
[2016-11-14] MEDS: CLINDAMYCIN 600 MG/NS 600 MG/50 ML IVPB IV SCH ×3 (01:23→17:09)
[2016-11-14] MEDS: ZOSYN 2.25 GM/NS 2.25 GM/50 ML IVPB IV SCH ×4 (03:25→22:05)
[2016-11-14 05:08] LABS: ALLEN TEST YES; BE -1.1 mmoll (-3.0-3.0); BLOOD TYPE ARTERIAL; METHB 1.2 % (0.0-1.5); O2(CT) 18.2 mL/dL (15.0-23.0); PCO2(98.6) 34 mmHg (35-45); PO2(98.6) 117 mmHg (60-100); SAMPLE BLOOD; SAO2 99.3 % (95.0-100.0); THB 13.3 g/dL (11.5-17.4); pH(98.6) 7.43 (7.35-7.45)
[2016-11-14 05:09] LABS: DRAW SITE R RADIAL; MODALITY BI PAP
[2016-11-14] MEDS: SODIUM CHLORIDE 0.9% INJ SCH (05:19)
[2016-11-14] MEDS: PEPCID IV SCH ×2 (05:19→17:18)
[2016-11-14 06:09] LABS: ALBUMIN 2.4 g/dL (3.5-5.0); CALCIUM 8.4 mg/dL (8.8-10.2); POTASSIUM 3.5 mmol/L (3.5-5.1); TOTAL BILIRUBIN 1.24 mg/dL (0.20-1.00); TOTAL PROTEIN 4.7 g/dL (6.3-8.3)
[2016-11-14 06:24] LABS: MAGNESIUM 1.8 mg/dL (1.5-2.7); PREALBUMIN 7.8 mg/dL (20-40)
--- NOTE | 2016-11-14 07:09 | Diag Imaging Result Doc PS360 ---
EXAM: CHEST-PORTABLE HISTORY: respiratory failure TECHNIQUE: AP portable at 0500 COMMENT: Compared to 11/13/2016 there has been slight increase in interstitial pulmonary edema particularly in the left base. The endotracheal tube has been removed. IMPRESSION: Slightly worsened pulmonary edema. Electronically signed by Arnoldo Wray 11/14/2016 7:07 AM
[2016-11-14] MEDS: MORPHINE IV PRN ×2 (07:37→15:31)
[2016-11-14] MEDS: NS 1,000 ML IV SCH (07:38)
[2016-11-14] MEDS ORDERED: INSULIN PEN NEEDLES ONE (08:37)
[2016-11-14] MEDS: LANTUS SUBQ SCH (09:04)
[2016-11-14 09:38] LABS: BASO% 0.9 % (0.0-0.8); EOS% 2.3 % (0.0-10.0); HEMOGLOBIN 11.9 g/dL (12.0-16.0); IMM GRAN# 1.58 X1000 (0.0-0.04); IMM GRAN% 7.1 % (0.0-0.5); MANUAL DIFF NEEDED? YES; MCH 32.3 PG (27-31); MCV 95.1 FL (81-99); MONO# 1.17 X1000 (0.11-0.59); MONO% 5.3 % (1.7-9.3); MPV 10.2 FL (7.4-10.4); NEUT% 79.4 % (42.2-75.2); PLT 148 X1000 (130-400); RBC 3.68 XMIL (4.2-5.4)
[2016-11-14] MEDS: 1: D50W 500 ML, AMINOSYN 10% 500 ML with TPN ELECTROLYTES 20 ML, CALCIUM GLUCONATE 5 MEQ IV SCH ×11 (09:51)
[2016-11-14 10:06] LABS: BANDS 2 % (0-1); EOS 2 % (1-10); LYMPHS 6 % (21-51); MONO 6 % (1-9)
--- NOTE | 2016-11-14 11:05 | PROGRESS NOTE ---
DATE: 11/14/2016 SUBJECTIVE: This patient was extubated yesterday. She is not having respiratory distress. Surgery department did a debridement of the right axilla and also part of the right upper lateral portion of the thorax and they placed again a new wound VAC. She is making urine properly. The potassium today is normal. The sodium is a little bit high and I will switch the normal saline to half NS. She is sleepy but arousable. She is not following commands for me but when I ask her if she knew her son she answered and talked to me, she said I know him. But she is extremely weak and sleepy. OBJECTIVE: Vital Signs: Temperature 98 degrees, pulse 106, respiratory rate on the monitor 17, oxygen saturation 100% on 3 L of nasal cannula. HEENT: Head normocephalic. No trauma. PERRLA. Neck: Supple. No JVD. No masses. Central trachea. Chest: There is a wound VAC with a new dressing at the level of the right axilla and lateral upper part of the thorax on the right side as well. Serosanguineous material is coming out from this wound. Decreased breath sounds. Cardiovascular: RRR. Abdomen: Soft, nontender, nondistended. Extremity: There is 2+ lower extremity edema and right arm edema. Neurological: The patient is sleepy but arousable. She is extremely weak. She recognized her son and she was able to talk a few words. LABORATORY: Sodium 147, potassium 3.5, chloride 113, bicarbonate 20, BUN 29, creatinine 2, glucose 162, calcium 8.4, magnesium 1.8, albumin 2.4. ASSESSMENT AND PLAN: 1. Necrotizing fasciitis. Dr. Cope took this patient yesterday to the OR for more debridement and tomorrow hopefully he will do it again. We will continue to follow their recommendations. Infectious disease department is also taking care of this patient. 2. Sepsis. She has been off pressors. The blood pressure has been stable. Pending CBC today. Blood culture showed Staphylococcus warneri and the culture from the right axilla showed Staphylococcus epidermidis. Urine culture showed E. coli. For now, we will continue with the same management. 3. Acute kidney injury. This is getting much better. She is making a good amount of urine. I do not think she is going to be dialyzed again. 4. Urinary tract infection. Continue with the same management. 5. Respiratory failure, improved. She is no longer on mechanical ventilation. She is not having respiratory distress and she is on only on nasal cannula 3 L. 6. Hypokalemia, resolved. 7. Hyperkalemia. I will stop the normal saline and I will replace this for half NS. Will monitor. 8. Nutritional status. This patient is on TPN. Will monitor. CRITICAL CARE TIME: 35 minutes. cc: Raul Ahuja MD
[2016-11-14] MEDS: 1/2 NS 1,000 ML IV SCH (11:14)
[2016-11-14] MEDS: LIPOSYN 20% 500 ML IV SCH (13:16)
[2016-11-14] MEDS ORDERED: BLISTEX MEDICATED BERRY LIP BALM TOP PRN (16:28)
[2016-11-14] MEDS: NS 500 ML IV SCH (17:08)
--- NOTE | 2016-11-14 21:30 | CONSULTATION ---
DATE OF CONSULTATION: 11/14/2016 HISTORY OF PRESENT ILLNESS: Ms. Chan is 76 years old and she was reportedly found down at her apartment with 5 days worth of mail uncollected, so presumably some possible alteration for 5 days. She was discovered with her right arm pinned behind or underneath her. She required surgical management for debridement. She was intubated briefly after surgery and had some sedative medicines which are now stopped. She has been more awake and alert through the day today. She was extubated yesterday. She had evidence of renal failure and had a few dialysis treatments and that seems to be much, much improved. She has been treated for sepsis. The home medicine list recorded on the computer shows metformin, valsartan/ hydrochlorothiazide, furosemide, duloxetine, aspirin, simvastatin. Her admission blood sugar was over 500 and that has been controlled. I do not have any past history of similar event, seizure, stroke, serious head injury, intoxication syndromes or other neurologic event. She is not attentive enough now to provide detailed personal history. PHYSICAL EXAM: On exam, she is awake, alert, breathing comfortably. She answered a few very simple questions with some grumbling and dysarthric speech but I could understand some of her words. She did not follow simple commands on repeated testing. She spontaneously moved her gaze left and right but seemed to prefer looking toward the right or looking away from me. Head is unremarkable. Neck is supple without meningismus. Feet are warm. I did not examine her right arm. Left hand is warm. She has full lateral eye movement with passive head turning. Pupils react to bright light. Corneal reflex is present bilaterally. Facial motility seems symmetric. Tongue is midline. Tone is equal in the legs. She withdrew her left leg a little bit more briskly than the right but I am not sure that is significant. Again, I did not disturb or test her right arm. She used her left hand briefly purposefully. Plantar response is extensor bilaterally. She was not attentive to sensory testing. Reflexes are absent at the ankles. IMPRESSION: Found down, evidence of rhabdomyolysis, acute kidney injury, necrotizing fasciitis all treated and improved. She had significant blood sugar elevation which is also improved. I do not know why she went down. There is not a definite focal neurologic finding now but I cannot examine her right arm vigorously and she may move her left leg a little more than the right leg. She did not respond significantly to questions and I cannot say she does or does not have dysphasia. I do not see clinical evidence of increased intracranial pressure. Earlier noncontrast CT of the head was unremarkable and that is reassuring. In light of her improvement through the day today, I do not think we need to do anything urgently from a neurologic standpoint. If we can get more history about what happened at home, we might consider workup including EEG to look for evidence of seizure and we might repeat her imaging studies later if there seems to be a more consistent focal neurologic finding. Again, no urgent suggestion now. Thanks for asking me to see Ms. Chan. cc: MD NOE Cutris III
[2016-11-15] MEDS: HUMALOG SUBQ SCH ×6 (01:51→20:30)
[2016-11-15] MEDS: CLINDAMYCIN 600 MG/NS 600 MG/50 ML IVPB IV SCH ×2 (01:52→10:07)
[2016-11-15] MEDS: ZOSYN 2.25 GM/NS 2.25 GM/50 ML IVPB IV SCH ×3 (03:48→15:45)
[2016-11-15 04:47] LABS: ALLEN TEST YES; BLOOD TYPE ARTERIAL; DRAW SITE R RADIAL; METHB 0.2 % (0.0-1.5); O2(CT) 8.6 mL/dL (15.0-23.0); PCO2(98.6) 35 mmHg (35-45); PO2(98.6) 75 mmHg (60-100); SAMPLE BLOOD; SAO2 99.1 % (95.0-100.0); THB 6.2 g/dL (11.5-17.4); pH(98.6) 7.46 (7.35-7.45)
[2016-11-15 04:48] LABS: MODALITY CANNULA
[2016-11-15] MEDS: PEPCID IV SCH ×2 (05:22→17:51)
[2016-11-15] MEDS: SODIUM CHLORIDE 0.9% INJ SCH (05:22)
--- NOTE | 2016-11-15 06:32 | Diag Imaging Result Doc PS360 ---
CHEST-PORTABLE - 11/15/2016 INDICATION: respiratory failure TECHNIQUE: COMPARISON: 11/14/2016 FINDINGS: Support lines and tubes are stable. There is slight decrease in the central infiltrates and pulmonary vascular congestion bilaterally. Stable retrocardiac consolidation and/or effusion. Heart size is grossly normal. IMPRESSION: Improving central infiltrates/edema and pulmonary vascular congestion. Electronically signed by Luke Hoover 11/15/2016 6:30 AM
[2016-11-15] MEDS: 1/2 NS 1,000 ML IV SCH ×2 (07:27→08:41)
[2016-11-15] MEDS: 1: D50W 500 ML, AMINOSYN 10% 500 ML with TPN ELECTROLYTES 20 ML, CALCIUM GLUCONATE 5 MEQ IV SCH ×11 (07:28)
[2016-11-15 07:50] LABS: BASO% 0.7 % (0.0-0.8); EOS# 0.37 X1000 (0.0-0.7); EOS% 1.5 % (0.0-10.0); HEMATOCRIT 35.6 % (37.0-47.0); HEMOGLOBIN 12.1 g/dL (12.0-16.0); IMM GRAN# 1.25 X1000 (0.0-0.04); IMM GRAN% 5.2 % (0.0-0.5); LYMPH# 1.33 X1000 (1.2-3.4); LYMPH% 5.5 % (20.5-51.1); MANUAL DIFF NEEDED? YES; MCH 32.4 PG (27-31); MCV 95.2 FL (81-99); MONO# 1.12 X1000 (0.11-0.59); MONO% 4.6 % (1.7-9.3); MPV 10.3 FL (7.4-10.4); NEUT% 82.5 % (42.2-75.2); PLT 163 X1000 (130-400); RBC 3.74 XMIL (4.2-5.4)
[2016-11-15 07:54] LABS: ALBUMIN 2.3 g/dL (3.5-5.0); CALCIUM 8.4 mg/dL (8.8-10.2); MAGNESIUM 1.8 mg/dL (1.5-2.7); POTASSIUM 3.3 mmol/L (3.5-5.1); TOTAL BILIRUBIN 1.46 mg/dL (0.20-1.00); TOTAL PROTEIN 4.4 g/dL (6.3-8.3)
[2016-11-15 08:03] LABS: BANDS 3 % (0-1); EOS 1 % (1-10); LYMPHS 2 % (21-51); MONO 7 % (1-9)
[2016-11-15] MEDS ORDERED: POTASSIUM CHLORIDE 40 MEQ/SWI 40 MEQ/100 ML IVPB IV ONE (08:29)
[2016-11-15] MEDS: MORPHINE IV PRN ×5 (08:30→23:10)
[2016-11-15] MEDS: LANTUS SUBQ SCH (08:35)
--- NOTE | 2016-11-15 11:11 | PROGRESS NOTE ---
DATE: 11/15/2016 SUBJECTIVE: Ms. Chan is resting quietly in bed. She is responsive today. She denies pain. She does have random movement though she does not follow commands. OBJECTIVE: Her most recent vital signs are temperature 98.4 degrees .blood pressure 155/70, heart rate 96, respirations 22. She is on 30% Ventimask. She has saturations of 98% . She has had 3038 in. She has had 2200 out per Ponce catheter. LABORATORY DATA: Sodium 148, potassium 3.3. Her sodium is 112. CO2 25, BUN 32 , creatinine 1.8, glucose 142. Her anion gap is 11. Her calcium is 8.4, phosphorus 2.5, albumin 2.3. White count 24.13, hemoglobin 12.1, hematocrit 35.6, with a platelet count of 163,000. Her ABGs pH 7.46, CO2 35, PO2 75, bicarbonate 25.7. She has a lactate of 1.1 on a 30% Venti mask. PHYSICAL EXAMINATION: General: This is a 76-year-old white female. She is resting quietly in bed. Her family is at her bedside. Skin: Warm and dry. HEENT: Normocephalic, atraumatic. Conjunctiva is pale. She has DONTE. Mucous membranes are dry. Neck: Supple. Trachea midline. No JVD. Cardiovascular: Regular rate and rhythm. She is without murmur or gallop. Lungs: She has coarse breath sounds bilaterally. Equal excursion. Otherwise, no crackles or wheezes noted. Abdomen: Soft, nontender. Positive bowel sounds. Extremities: Trace edema left greater than right. She has a wound VAC to the left upper chest, arm and chest wall area. Otherwise no rashes or lesions. She does have different stages of ecchymosis and bruises with healing to the extremities and to hip area. Extremities have trace edema. No clubbing or cyanosis. Neurological: Patient is awake today. She does respond though she does not follow commands. ASSESSMENT AND PLAN: 1. Acute kidney injury. BUN and creatinine have actually improved today. She has had an increase in her urine output. No indications for intervention. 2. Electrolytes. Patient has mild hypokalemia. Replacement has been ordered per Dr. Samuel. 3. Acid-base balance. This has improved. 4. Anemia. This remains at target. 5. Respiratory failure. Patient is on Ventimask today. No indications for intervention. Followed by primary care I would like to thank you for allowing us to follow with this patient. Seen, data reviewed, discussed with Dakotah Tinsley on 11/15/16. I agree with the above assessment and plan of care. rg Dictated by MAGGIE Wilkins for Vidal Chu MD cc: MAGGIE Wilkins MD [facility]
--- NOTE | 2016-11-15 12:25 | PROGRESS NOTE ---
DATE: 11/15/2016 SUBJECTIVE: This patient was extubated a couple days ago. At this moment, she is on oxygen through a nasal cannula and her oxygen saturation is 95. X-ray done today showed improvement of the central infiltrate/pulmonary edema/vascular congestion. She seems to be more alert today, she is sleepy but arousable. She was answering some of my questions but sometimes I cannot understand what she says. She is following commands. She is not complaining of shortness of breath. OBJECTIVE: Vital Signs: Temperature 98.4 degrees, pulse 96, respiratory rate on the monitor 18, blood pressure on the monitor 151/60. Oxygen saturation 95% on nasal cannula. HEENT: Head normocephalic. No trauma. PERRLA. Neck: Supple. No JVD. No masses. Central trachea. Chest: Mild rales and decreased bowel sounds at the level of the right lower lung. There is a wound VAC at the level of the right axilla and lateral upper part of the thorax on the right side as well. Serosanguineous discharged is coming from this wound. Cardiovascular: Regular rate and rhythm. Abdomen: Soft, nontender, nondistended. Extremities: Trace lower extremity edema. Neurological: The patient is sleepy but arousable. She is extremely weak. She is talking to me and she says her name but I cannot understand most of her words. She is following commands. Moving all 4 extremities. But like I mentioned before, she is extremely weak. LABORATORY: WBC 24.1, hemoglobin 12, hematocrit 35.6, platelets 163,000. Sodium 148, potassium 3.3, chloride 112, bicarbonate 25, BUN 32, creatinine 1.8, glucose 142, calcium 8.4. Albumin 2.3. ASSESSMENT AND PLAN: 1. Sepsis, she has been off pressors. Blood pressure has been stable. Leukocytosis still present. She has a right axilla culture that showed Staphylococcus epidermis. Urine culture that showed Escherichia coli and blood culture that showed the Staphylococcus warneri. 2. Necrotizing fasciitis. Dr. Cope is taking care of this patient. Probably she will go again for more debridement in 1 or 2 days, likely it is going to be next Tuesday. We will continue to follow his recommendations. Infectious disease department is on board as well. 3. Acute kidney injury. This is getting much better. Her urine output has been adequate. Creatinine is trending down. 4. Respiratory failure improved. She is no longer on mechanical ventilation. No respiratory distress. 5. Hypokalemia. I will replace the potassium today. 6. Hypernatremia. We will increase water through the TPN. CRITICAL CARE TIME: Thirty-five minutes. cc: Raul Ahuja MD
[2016-11-15] MEDS: LIPOSYN 20% 500 ML IV SCH (13:48)
--- NOTE | 2016-11-15 15:08 | PROGRESS NOTE ---
DATE: 11/15/2016 Ms. Chan is much brighter, more alert, more attentive today than when I saw her yesterday. She spoke some words that I could understand but that was inconsistent. She followed some very simple commands consistently but did not follow complicated commands. I did not examine her right arm vigorously today. I do not find definite focal weakness in the legs. She used her left arm purposefully. There is no meningismus. I discussed her history with son at the bedside. There is reported remote diagnosis of schizophrenia and treatment for that condition. Son is not aware of her recent medicines and he does not know whether she had been taking medicine for management of mental illness recently. I do not have an explanation for her recent collapse. Her EEG today shows generalized slowing but no epileptiform discharge or other indication of seizure or stroke. I do not have any urgent suggestion today. She seems to be improving, encephalopathy gradually resolving. I will continue to follow. cc: Jayy Bell III, MD
--- NOTE | 2016-11-15 17:05 | EEG REPORT ---
DATE: 11/14/2016 ICU bed 5. EEG NUMBER: [id number] done on 11/15/2016. COMMENT: This is a digitally recorded EEG done portably in the ICU on a 76-year-old patient with altered consciousness, improved in recent days. FINDINGS: Record contains low amplitude 6 Hz posterior rhythm with uncertain reactivity to eye opening. Background contains polymorphic and rhythmic theta with infrequent delta frontally. There was some muscle contraction artifact which did not hinder interpretation. Photic stimulation did not significantly alter the record. No definite epileptiform discharge was identified. INTERPRETATION: Abnormal EEG because of generalized slowing. CORRELATION: This is indicative of a diffuse encephalopathy and is nonspecific. The absence of epileptiform discharges on a single EEG does not exclude a clinical diagnosis of seizures, but there is nothing on this record to suggest a seizure disorder as the reason for her recent collapse. cc: MD Star Curtis III, MD
[2016-11-15] MEDS: MYCAMINE 100 MG in NS 100 ML IV SCH (17:12)
[2016-11-15] MEDS: ROCEPHIN 2 GM/NS 2 GM/50 ML IVPB IV SCH (17:12)
[2016-11-15] MEDS: NS 500 ML IV SCH (17:12)
--- NOTE | 2016-11-15 17:20 | PROGRESS NOTE ---
DATE: 11/15/2016 PRESENT ILLNESS: The patient is status post surgery performed by Dr. Star Cope for the patient's necrotizing pancreatitis. MEDICATIONS: The patient is on a combination of vancomycin and Zosyn. PHYSICAL EXAMINATION: Vital Signs: Temperature is 97.5 degrees, pulse 91, respirations 17, blood pressure 120/75. General: The patient looks much better today. She is talking. She he is not complaining of any pain at this moment. Lungs: Clear to auscultation. Cardiovascular: Heart rate is regular. Abdomen: Soft and nontender. Wound Examination: I was down earlier this morning when all the dressings were taken off the wounds. The wounds all have beefy red tissue. There is a very small amount in the upper left hand part of the wound of some necrotic tissue, which will be debrided tomorrow by Dr. Cope. Otherwise, her wounds, as mentioned above, are beefy red in color. There is no surrounding erythema. There is no odor to the wounds. LABORATORY AND X-RAY: Blood gases show a pH of 7.46, a PO2 of 75, pCO2 of 35. Creatinine is 1.8, GFR is 28. CBC shows a white count of 24,130, hemoglobin 12.1, and platelet count 163,000. ASSESSMENT AND PLAN: My plan is to discontinue Zosyn and clindamycin, but continue vancomycin, and add Rocephin and micafungin. COMORBIDITIES: Include being elderly, being diabetic, and having been found down at her home from anywhere from 3 to 5 days. cc: Jhon Ortiz MD
[2016-11-16] MEDS: HUMALOG SUBQ SCH ×6 (00:29→20:02)
[2016-11-16] MEDS: 1/2 NS 1,000 ML IV SCH ×2 (02:11→21:41)
[2016-11-16] MEDS: 1: D50W 500 ML, AMINOSYN 10% 500 ML with TPN ELECTROLYTES 20 ML, CALCIUM GLUCONATE 5 MEQ IV SCH ×11 (04:52)
[2016-11-16 05:03] LABS: ALLEN TEST YES; BE 1.5 mmoll (-3.0-3.0); BLOOD TYPE ARTERIAL; DRAW SITE R RADIAL; PCO2(98.6) 34 mmHg (35-45); PO2(98.6) 72 mmHg (60-100); SAMPLE BLOOD; THB < 3.0 g/dL (11.5-17.4); pH(98.6) 7.47 (7.35-7.45)
[2016-11-16 05:05] LABS: MODALITY BI PAP
[2016-11-16 05:44] LABS: BASO% 0.5 % (0.0-0.8); EOS# 0.39 X1000 (0.0-0.7); EOS% 1.6 % (0.0-10.0); HEMATOCRIT 34.2 % (37.0-47.0); HEMOGLOBIN 11.7 g/dL (12.0-16.0); IMM GRAN# 1.32 X1000 (0.0-0.04); IMM GRAN% 5.5 % (0.0-0.5); MAGNESIUM 1.8 mg/dL (1.5-2.7); MANUAL DIFF NEEDED? YES; MCH 32.6 PG (27-31); MCHC 34.2 g/dL (33-37); MCV 95.3 FL (81-99); MONO# 1.25 X1000 (0.11-0.59); MONO% 5.2 % (1.7-9.3); MPV 10.5 FL (7.4-10.4); NEUT% 82.2 % (42.2-75.2); PLT 188 X1000 (130-400); RBC 3.59 XMIL (4.2-5.4)
[2016-11-16 05:55] LABS: ALBUMIN 2.1 g/dL (3.5-5.0); CALCIUM 8.5 mg/dL (8.8-10.2); POTASSIUM 3.6 mmol/L (3.5-5.1); TOTAL BILIRUBIN 1.22 mg/dL (0.20-1.00); TOTAL PROTEIN 5.1 g/dL (6.3-8.3)
[2016-11-16] MEDS: MORPHINE IV PRN ×4 (05:57→13:07)
[2016-11-16] MEDS: SODIUM CHLORIDE 0.9% INJ SCH (05:57)
[2016-11-16] MEDS: PEPCID IV SCH ×2 (05:57→17:22)
--- NOTE | 2016-11-16 06:14 | Diag Imaging Result Doc PS360 ---
EXAM: CHEST-PORTABLE HISTORY: respiratory failure TECHNIQUE: Portable COMPARISON: 11/15/2016 FINDINGS: No change in the right jugular line, nasogastric tube, or in the left subclavian line. Heart is mildly prominent. Mild increased interstitial markings similar to the prior exam. There is a small left pleural effusion. IMPRESSION: No interval improvement. Electronically signed by Constantino Monahan 11/16/2016 6:12 AM
[2016-11-16 07:36] LABS: BANDS 6 % (0-1); EOS 2 % (1-10); LYMPHS 4 % (21-51); MONO 10 % (1-9)
[2016-11-16] MEDS: LANTUS SUBQ SCH (08:09)
--- NOTE | 2016-11-16 10:04 | PROGRESS NOTE ---
DATE: 11/16/2016 SUBJECTIVE: This is a 76-year-old with a past medical history of diabetes mellitus type 2, hypertension, allergic rhinitis, hyperlipidemia. Primary care physician at this time I am sure we know. Brought in on 11/09/2016 after the landlord noticed that she had not picked up her mail in 5 days. Went to unlock and open the door and the patient lying on the couch, right arm behind her. At times, she was noted to be obtunded, lethargic, and not responsive, covered with old and new feces. It was noted that she had been lying there for quite some time. She was brought to the ER for evaluation. 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 Patient is arousable and says words and responding. Family is encouraged that she seems to be improving. PHYSICAL EXAMINATION: Today, temperature 97.7 degrees, pulse 95, respirations 16, blood pressure 170/68; range of blood pressure is 138-170/56-70. Lungs are clear, anterolateral. She is intubated. Cardiovascular: PMI nondisplaced. Regular rhythm and rate. Abdomen nondistended, soft. Positive bowel sounds. Urine output from yesterday, 2300 mL. LABORATORY DATA: This morning, white count 24,190. Hematocrit 34, platelet count 188,000. Chemistry: Sodium 148, potassium 3.6, chloride 113. BUN 30, creatinine 1.4, blood sugar 123 and 129. ASSESSMENT AND PLAN: 1. Necrotizing fasciitis. Dr. Cope has taken this patient to the operating room for more debridement, and she has a wound VAC. Continue to follow up and the present antibiotics. Infectious Disease is following. 2. Sepsis. She has been off her pressors. Sepsis was secondary necrotizing fasciitis and possible urinary tract infection. Blood culture shows Staphylococcus warneri and urine culture showed Escherichia coli. Wound culture showed Staphylococcus epidermis. Continue present antibiotics. 3. Acute kidney injury secondary to rhabdomyolysis and dehydration. This appears to be improving. 4. Urinary tract infection. Continue present antibiotics. 5. Respiratory failure. Presently on a ventilator. Will wean as we are able. Pulmonary following. 6. Hypokalemia which has been supplemented. 7. Nutrition. The patient is on total parental nutrition at this time. REVIEW OF ORDERS: The patient getting vancomycin 1 g after dialysis. She gets ceftriaxone 2 g IV q. 24 hours, micafungin 100 mg IV q. 24 hours. She was given Pepcid 20 mg IV q.12 hours. She is on TPN. Continue present regimen. cc: Ben Mistry MD
[2016-11-16] MEDS: LIPOSYN 20% 500 ML IV SCH (12:46)
[2016-11-16] MEDS: ROCEPHIN 2 GM/NS 2 GM/50 ML IVPB IV SCH (16:06)
[2016-11-16] MEDS: MYCAMINE 100 MG in NS 100 ML IV SCH (16:06)
[2016-11-16] MEDS: NS 500 ML IV SCH (17:22)
--- NOTE | 2016-11-16 18:12 | PROGRESS NOTE ---
DATE: 11/16/2016 PRESENT ILLNESS: The patient is status post surgery for necrotizing fasciitis. MEDICATIONS: Patient is receiving vancomycin, Rocephin and micafungin. PHYSICAL EXAMINATION: Vital Signs: Temperature is 97.9 degrees, pulse 104, respirations 20, blood pressure 154/84. Generally: This is an ill-appearing, elderly female. She is in no acute distress. Lungs: Clear to auscultation. Cardiovascular: Regular heart rate. Abdomen: Soft without masses or tenderness. WOUNDS: The VAC is in place for the wounds. There is no surrounding erythema. The patient has a right internal jugular catheter in place and a left subclavian catheter in place. LAB AND X-RAY: Chest x-ray shows no change in the patient's interstitial markings in her lungs. The CBC continues to show a leukocytosis with a white count today of 24,190, hemoglobin 11.7 and platelet count 188,000. Blood gases show a pH of 7.47, a PO2 of 72 and a pCO2 of 34. Creatinine is 1.4. GFR is 37. ASSESSMENT AND PLAN: I plan to continue with the current antibiotics. In addition, I am going to get blood cultures, 1 set is going to be from the internal jugular catheter and the other is going to be from the left subclavian catheter. COMORBIDITIES: Include she is elderly, she is a diabetic and was found down at her home for anywhere from 3-5 days. cc: Jhon Ortiz MD
[2016-11-17] MEDS: 1: D50W 500 ML, AMINOSYN 10% 500 ML with TPN ELECTROLYTES 20 ML, CALCIUM GLUCONATE 5 MEQ IV SCH ×11 (00:48)
[2016-11-17] MEDS: HUMALOG SUBQ SCH ×6 (00:58→20:57)
[2016-11-17] MEDS: MORPHINE IV PRN ×2 (01:08→12:39)
[2016-11-17 04:04] LABS: ALLEN TEST YES; BE 0.1 mmoll (-3.0-3.0); BLOOD TYPE ARTERIAL; DRAW SITE R RADIAL; METHB 1.5 % (0.0-1.5); O2(CT) 23.4 mL/dL (15.0-23.0); PCO2(98.6) 36 mmHg (35-45); PO2(98.6) 123 mmHg (60-100); SAMPLE BLOOD; SAO2 99.1 % (95.0-100.0); THB 17.2 g/dL (11.5-17.4); pH(98.6) 7.43 (7.35-7.45)
[2016-11-17 04:05] LABS: MODALITY BI PAP
[2016-11-17] MEDS: SODIUM CHLORIDE 0.9% INJ SCH (05:24)
[2016-11-17] MEDS: PEPCID IV SCH ×2 (05:24→18:05)
[2016-11-17 05:27] LABS: CALCIUM 8.4 mg/dL (8.8-10.2); MAGNESIUM 1.8 mg/dL (1.5-2.7); POTASSIUM 3.8 mmol/L (3.5-5.1)
--- NOTE | 2016-11-17 07:21 | Diag Imaging Result Doc PS360 ---
EXAM: CHEST-PORTABLE INDICATION: respiratory failure TECHNIQUE: One view COMPARISON: 11/16/2016 FINDINGS: The NG tube has been removed. Left Vas-Cath and right IJ line are in stable positions. Mild increased interstitial markings bilaterally are relatively stable. The small left pleural effusion is approximately stable. There are no new consolidations. Cardiac silhouette is stable. IMPRESSION: Interval removal of the NG tube. Otherwise, essentially stable chest. Electronically signed by Dk Flecther 11/17/2016 7:19 AM
--- NOTE | 2016-11-17 07:43 | PROGRESS NOTE ---
DATE: 11/17/2016 SUBJECTIVE: Ms. Chan is feeling better. She is extubated. She is talking, communicating. Says she feels pretty good. PHYSICAL EXAMINATION: Vital Signs: Temperature 98.2 degrees, pulse 98, respirations 16, blood pressure 165/79. HEENT: Pupils are equal and round. Lungs: Are clear in all lung sotelo. Cardiovascular Examination: Regular rhythm and rate without murmur or S3. Abdomen: Soft. Skin: Is warm and dry. Is and Os: Urine output 3200 mL. LAB: From yesterday reviewed. White count still elevated at 24,000. Chemistries from today: Sodium 143, potassium 3.8, chloride 101, BUN 29, creatinine 1.3. Blood sugar 162, 169, 129. Chest x-ray also from this morning: Interval removal of NG tube. Otherwise essentially stable chest. Left Vas-Cath, right U-line are in stable position. Mild increased interstitial markings bilateral, relatively stable. ASSESSMENT AND PLAN: 1. Status post surgery for necrotizing fasciitis. Receiving vancomycin, Rocephin, and micafungin. Seems to be clinically improving. 2. Sepsis. Her blood pressure is better, from necrotizing fasciitis. 3. Acute kidney injury secondary to rhabdomyolysis and dehydration. This appears to be improving steadily. 4. Urinary tract infection. Continue present antibiotics. This is improving. 5. Respiratory failure. She is off the ventilator, was weaned off and doing well with air and gas exchange. 6. Hypokalemia, has been supplemented. 7. Nutrition. Encourage oral intake. 8. Continue topical wound care. 9. Review of orders. I do not see any change at this point. On vancomycin and ceftriaxone which she gets vancomycin after dialysis and ceftriaxone 2 g IV q.24 hours. Micafungin 100 mg IV q.24 hours. Note, her blood sugars, continue patterned sugars, appear well controlled. cc: Ben Mistry MD
[2016-11-17] MEDS ORDERED: DIPRIVAN 1% ONE (08:08)
[2016-11-17] MEDS ORDERED: QUELICIN (DOSE) ONE (08:09)
[2016-11-17] MEDS ORDERED: XYLOCAINE-MPF 2% ONE (08:09)
[2016-11-17] MEDS ORDERED: AMIDATE ONE (08:37)
[2016-11-17] MEDS: LANTUS SUBQ SCH (09:00)
--- NOTE | 2016-11-17 09:13 | PROGRESS NOTE ---
DATE: 11/17/2016 SUBJECTIVE: She is awake and alert. She is in the holding room awaiting surgery to remove her tunnel catheter, replace her central line and debride her wounds. She has no complaints. No shortness of breath, nausea, chest pain, etc. OBJECTIVE: Vital Signs: Blood pressure 168/79, heart rate 98, respirations 16, afebrile. Intake 3.7 L. Output 1.5 L. PHYSICAL EXAMINATION: No acute distress. Skin is warm and dry. Conjunctivae are pink. Neck veins are not visible. Heart is regular. Lungs have equal breath sounds. No crackles. Abdomen soft, nontender. Bowel sounds present. Extremities have 1+ edema. No clubbing or cyanosis. LABORATORY DATA: Sodium 143, potassium 3.8, chloride 111, bicarbonate 21. BUN 29. Creatinine 1.3. IMPRESSION: Acute kidney injury, resolved. Her tunneled catheter will be removed today. I will sign off. If I can be of further assistance, please do not hesitate to call. cc: Vidal Chu MD
[2016-11-17] MEDS ORDERED: HYDROGEN PEROXIDE SOLUTION ONE (09:36)
[2016-11-17] MEDS ORDERED: MORPHINE ONE (10:46)
--- NOTE | 2016-11-17 12:25 | OPERATIVE NOTE ---
PROCEDURE DATE: 11/17/2016 PREOPERATIVE DIAGNOSIS: Necrotic wound, right axilla and chest wall, status post previous debridements, resolved acute renal failure. PROCEDURES PERFORMED: Removal of Vas-Cath, exchange of right IJ line, further debridement, and replacement of wound VAC on right chest wall and axillary wounds. DESCRIPTION OF PROCEDURE: The patient was brought to the operating room. After satisfactory induction of IV and endotracheal anesthesia, initially her left IJ Vas-Cath was removed and there was no back bleeding. Her right IJ central line was exchanged over a wire with sterile technique, and it was anchored with 3-0 silk. Sterile dressing was applied. She was subsequently turned up onto her right side. The wound VAC was removed. The area was prepped and draped and then further necrotic tissue was debrided. The wound VAC was deployed, essentially the same dimensions as the previous. A satisfactory seal was obtained. She was subsequently turned back onto her back, awakened, and extubated and transferred to recovery. ESTIMATED BLOOD LOSS: Around 30 mL. cc: Star Cope MD
[2016-11-17] MEDS: NS 500 ML IV SCH ×2 (12:32→17:15)
[2016-11-17] MEDS: LIPOSYN 20% 500 ML IV SCH (12:32)
[2016-11-17] MEDS: 1/2 NS 1,000 ML IV SCH ×2 (12:39→17:15)
--- NOTE | 2016-11-17 13:38 | PROGRESS NOTE ---
DATE: 11/17/2016 Ms. Chan is sleeping peacefully. She was easily waked with minimal stimulation. She followed simple commands consistently including holding up 2 fingers. I did not examine her right arm. Her facial motility appears symmetric. She has full lateral eye movement spontaneously. I do not see evidence of any new neurologic problem. No new suggestion today from neurologic standpoint. cc: Jayy Bell III, MD
[2016-11-17] MEDS: MYCAMINE 100 MG in NS 100 ML IV SCH (17:05)
[2016-11-17] MEDS: ROCEPHIN 2 GM/NS 2 GM/50 ML IVPB IV SCH (18:05)
[2016-11-18] MEDS: HUMALOG SUBQ SCH ×6 (01:21→21:40)
[2016-11-18] MEDS: MORPHINE IV PRN ×2 (03:40→09:17)
[2016-11-18] MEDS ORDERED: TYLENOL PR PRN (03:54)
[2016-11-18] MEDS: PEPCID IV SCH ×2 (05:16→17:39)
[2016-11-18 05:21] LABS: BASO% 0.4 % (0.0-0.8); EOS# 0.27 X1000 (0.0-0.7); EOS% 1.3 % (0.0-10.0); HEMATOCRIT 29.9 % (37.0-47.0); HEMOGLOBIN 10.1 g/dL (12.0-16.0); IMM GRAN# 0.52 X1000 (0.0-0.04); IMM GRAN% 2.6 % (0.0-0.5); LYMPH# 1.66 X1000 (1.2-3.4); LYMPH% 8.2 % (20.5-51.1); MANUAL DIFF NEEDED? NO; MCH 32.4 PG (27-31); MCHC 33.8 g/dL (33-37); MCV 95.8 FL (81-99); MONO# 1.17 X1000 (0.11-0.59); MONO% 5.8 % (1.7-9.3); MPV 10.1 FL (7.4-10.4); NEUT% 81.7 % (42.2-75.2); PLT 229 X1000 (130-400); RBC 3.12 XMIL (4.2-5.4)
[2016-11-18 05:39] LABS: MAGNESIUM 1.8 mg/dL (1.5-2.7)
[2016-11-18 05:40] LABS: CALCIUM 8.4 mg/dL (8.8-10.2); POTASSIUM 3.6 mmol/L (3.5-5.1); TOTAL BILIRUBIN 0.71 mg/dL (0.20-1.00); TOTAL PROTEIN 5.1 g/dL (6.3-8.3)
--- NOTE | 2016-11-18 06:48 | PROGRESS NOTE ---
DATE: 11/18/2016 PRESENT ILLNESS: The patient is status post multiple debridements for necrotizing fasciitis. Yesterday, she underwent further debridements. She has had placement of a right internal jugular catheter placed, and she had the VAC placed to her wounds. MEDICATIONS: The patient is on Rocephin and micafungin now for 3 days, and vancomycin for 8 days. PHYSICAL EXAMINATION: Vital Signs: Temperature is 100.2 degrees, pulse 121, respirations 17, blood pressure 158/76. General: This is an ill-appearing elderly female. She is in no acute distress. She is sleeping now. Lungs: Clear to auscultation. Cardiovascular: Regular heart rate. Abdomen: Soft and nontender. Neck: She has an internal jugular catheter in place. The site is not erythematous or swollen. The patient's wounds have dressings or the VAC on them. Both the dressings and the VAC are in place. LABORATORY AND X-RAYS: There is no new x-ray. The CBC today shows a white count of 20,240, hemoglobin 10.1, and platelet count 229,000. Creatinine is 1.2. GFR is 44. Liver function studies are normal. repeat blood cultures thus far are sterile. ASSESSMENT AND PLAN: Patient is status post surgery and antibiotic therapy for necrotizing fasciitis. It was also felt she may have infection due to an intravascular catheter. In any event, I plan to continue with the patient's current antibiotics, consisting of vancomycin, Rocephin, and micafungin. COMORBIDITIES: She is elderly, she has diabetes, and was found down at her home for 3-5 days. cc: Jhon Ortiz MD
--- NOTE | 2016-11-18 08:33 | PROGRESS NOTE ---
DATE: 11/18/2016 SUBJECTIVE: Ms. Chan is awake. She is lethargic but she is awake and responsive. Appears to be breathing comfortably. PHYSICAL EXAMINATION: Vital Signs: Temperature 99.2 degrees, pulse 107, respirations 17, blood pressure 149/64. HEENT: Pupils are equal and round. CVP appears to be less than 6 cm. Lungs: Clear in all lung sotelo. Cardiovascular Examination: Regular rhythm and rate without murmur or S3. Abdomen: Soft. Skin: Is warm and dry. Is and Os: Urine output 2300. LAB: White count 20,240, hematocrit 29, platelet count 229,000. Chemistry: Sodium 140, potassium 3.6, chloride 109, bicarb 22, BUN 26, creatinine 1.2. Blood sugar 176, 157, 124. Phosphorus was 2.6. ASSESSMENT AND PLAN: 1. Multiple debridements of necrotizing fasciitis. Yesterday, underwent further debridements, placement of right interior jugular catheter placed. Has a VAC placed on her wounds. Continue Rocephin and micafungin. She has had that for 3 days now and vancomycin for [address] Bell following her metabolic encephalopathy and she seems to be improving. Her facial motility appears symmetric, full lateral eye movement spontaneously. He did not see any evidence of new neurologic problem. 3. The patient was brought to the operating room yesterday. Had endotracheal anesthesia and a left IJ Vas-Cath was removed. Her right IJ central line was changed over, sterile technique. Dr. Chu is following acute kidney injury which seems to be improving and resolved. Her tunneled catheter was removed yesterday, I believe. Urinary tract infection has been treated. We will supplement electrolytes as needed. 4. Review of orders. I do not see any change at this point. cc: Ben Mistry MD
[2016-11-18] MEDS ORDERED: POTASSIUM PHOSPHATE 40 MEQ in NS 250 ML IV ONE (09:00)
[2016-11-18] MEDS: LANTUS SUBQ SCH (09:27)
[2016-11-18] MEDS: 1/2 NS 1,000 ML IV SCH ×2 (09:42→16:26)
[2016-11-18] MEDS: LIPOSYN 20% 500 ML IV SCH (12:48)
[2016-11-18] MEDS: LOVENOX SUBQ SCH (13:02)
[2016-11-18] MEDS: MYCAMINE 100 MG in NS 100 ML IV SCH (16:26)
[2016-11-18] MEDS: ROCEPHIN 2 GM/NS 2 GM/50 ML IVPB IV SCH (17:39)
[2016-11-18] MEDS ORDERED: LASIX IV ONE (17:53)
[2016-11-18] MEDS: NS 500 ML IV SCH (18:06)
[2016-11-19] MEDS: HUMALOG SUBQ SCH ×6 (01:45→21:13)
[2016-11-19] MEDS: 1/2 NS 1,000 ML IV SCH ×2 (04:46→10:13)
[2016-11-19] MEDS: PEPCID IV SCH ×2 (05:26→18:07)
[2016-11-19 06:05] LABS: ALBUMIN 1.7 g/dL (3.5-5.0); CALCIUM 7.3 mg/dL (8.8-10.2); POTASSIUM 2.6 mmol/L (3.5-5.1); TOTAL BILIRUBIN 0.39 mg/dL (0.20-1.00); TOTAL PROTEIN 4.7 g/dL (6.3-8.3)
[2016-11-19 06:15] LABS: MAGNESIUM 1.5 mg/dL (1.5-2.7)
[2016-11-19 06:37] LABS: PREALBUMIN 12.2 mg/dL (20-40)
--- NOTE | 2016-11-19 07:26 | Diag Imaging Result Doc PS360 ---
EXAM: CHEST-PORTABLE HISTORY: abnormal exam TECHNIQUE: Erect AP portable at 0530 COMMENT: There is pleural fluid bilaterally more so on the left than the right. There is some clearing of the basilar pulmonary edema present on 11/17/2016. There is resolution of platelike atelectasis in the left upper lobe. IMPRESSION: Improved pulmonary edema and atelectasis. Electronically signed by Arnoldo Wray 11/19/2016 7:23 AM
--- NOTE | 2016-11-19 08:11 | PROGRESS NOTE ---
DATE: 11/19/2016 PRESENT ILLNESS: The patient has had necrotizing fasciitis. It has been debrided multiple times by Dr. Cope. The patient also has a right subclavian catheter in place. Staph has been isolated both from the blood and the patient's wounds. She continues to have a high white count, and her antimicrobial coverage has been expanded in case she has an infection which has not been identified at this time. MEDICATIONS: This is day 9 of vancomycin and day 4 of both Rocephin and micafungin. PHYSICAL EXAMINATION: Vital Signs: Temperature is 98 degrees, pulse 103, respirations 12, blood pressure 132/65. In general, this is an ill-appearing, elderly female. She is in no acute distress. Lungs clear to auscultation. Cardiovascular: Heart rate is regular. Abdomen is soft and nontender. Thorax: The patient has a subclavian catheter in place. Integument: All the patient's wounds have a dressing on, either a regular dressing or VAC on them. LABORATORY DATA AND X-RAYS: There is no new X-ray. The only new lab for today is a creatinine and GFR which is 1 and 54 respectively. ASSESSMENT AND PLAN: The patient is getting over necrotizing fasciitis. The plan is to continue with the current antibiotics and also with the local care as ordered by Dr. Cope. I have ordered for 11/21/2016 a CBC and BMP to be drawn in the morning. The patient's comorbidities include being elderly, diabetes, and the fact that she was down at her home for 3-5 days without any treatment or any intake of food. cc: Jhon Ortiz MD
[2016-11-19] MEDS ORDERED: NS IV ONE (08:34)
[2016-11-19] MEDS ORDERED: POTASSIUM PHOSPHATE IV ONE (08:34)
--- NOTE | 2016-11-19 09:31 | PROGRESS NOTE ---
DATE: 11/19/2016 SUBJECTIVE: Ms. Chan is awake and alert. She is requesting some coffee this morning. OBJECTIVE: Temperature 98.8 degrees, pulse 102, respirations 20, blood pressure 137/70. HEENT: Pupils are equal, round. Lungs are clear in all lung sotelo. Cardiovascular: Regular rhythm and rate without murmur or S3. Abdomen is soft. Skin is warm and dry. Urine output over 6.5 L. LABORATORY DATA: Lab reviewed from yesterday: Still some leukocytosis. White count 20,000. This morning, sodium 143, potassium 2.6, chloride 110. Bicarb 23. BUN 19, creatinine 1.0, blood sugar 196, 178, 99, and 132. Pre-albumin was 12.2 and albumin is 1.7. Magnesium 1.5. Phosphorus 3.1. ASSESSMENT AND PLAN: 1. Necrotizing fasciitis. He has had multiple debridements per Dr. Cope. Right subclavian catheter in place. Staphylococcus has been isolated both from the blood and patient's wounds. He continues to have high white count. Continue antibiotic. Present antibiotic is Rocephin. Micafungin. This should be day 9 of vancomycin and day 4 of Rocephin. 2. Diabetes mellitus, type 2. Continue to follow sugars. 3. Protein calorie malnutrition. Low albumin. Low pre-albumin. Encourage p.o. intake. 4. Metabolic encephalopathy which is improving. 5. General weakness and deconditioning. Continue physical therapy. REVIEW OF HER ORDERS: I will supplement some potassium today. I will probably give her some more K-Phos today. Magnesium looks good. She is on insulin glargine or Lantus 20 units subcutaneous daily. Getting the micafungin 100 mg q. 24 hours. The Pepcid - she is getting 20 mg IV q.12. She has good urine output. Renal function looks good. cc: Ben Mistry MD
[2016-11-19] MEDS: LOVENOX SUBQ SCH (10:14)
[2016-11-19] MEDS: LANTUS SUBQ SCH (10:14)
[2016-11-19] MEDS: POTASSIUM CHLORIDE 20% LIQUID PO SCH (10:15)
[2016-11-19] MEDS: MORPHINE IV PRN ×3 (10:30→21:13)
--- NOTE | 2016-11-19 11:38 | PROGRESS NOTE ---
DATE: 11/19/2016 Ms. Chan continues to improve. Today, she is awake, alert, attentive. She followed simple commands and more complicated commands consistently. She moved her right hand to command. I do not see any definite language deficit on bedside testing. I do not have any new suggestion today from a neurologic standpoint. Her encephalopathy continues to resolve. Thanks for allowing me to follow Ms. Chan. cc: Jayy Bell III, MD
[2016-11-19] MEDS: LIPOSYN 20% 500 ML IV SCH (14:28)
[2016-11-19] MEDS: MYCAMINE 100 MG in NS 100 ML IV SCH (17:35)
[2016-11-19] MEDS: ROCEPHIN 2 GM/NS 2 GM/50 ML IVPB IV SCH (17:36)
[2016-11-19] MEDS: NS 500 ML IV SCH (17:53)
[2016-11-19] MEDS: SODIUM CHLORIDE 0.9% INJ SCH (18:07)
[2016-11-20] MEDS: MORPHINE IV PRN ×4 (00:29→16:08)
[2016-11-20] MEDS: HUMALOG SUBQ SCH ×6 (00:30→21:14)
[2016-11-20 05:55] LABS: BASO% 0.3 % (0.0-0.8); EOS# 0.35 X1000 (0.0-0.7); EOS% 2.2 % (0.0-10.0); HEMATOCRIT 27.7 % (37.0-47.0); HEMOGLOBIN 9.1 g/dL (12.0-16.0); IMM GRAN# 0.28 X1000 (0.0-0.04); IMM GRAN% 1.8 % (0.0-0.5); LYMPH# 1.88 X1000 (1.2-3.4); LYMPH% 11.9 % (20.5-51.1); MANUAL DIFF NEEDED? NO; MCH 31.9 PG (27-31); MCHC 32.9 g/dL (33-37); MCV 97.2 FL (81-99); MONO# 0.97 X1000 (0.11-0.59); MONO% 6.1 % (1.7-9.3); MPV 10.2 FL (7.4-10.4); NEUT% 77.7 % (42.2-75.2); PLT 321 X1000 (130-400); RBC 2.85 XMIL (4.2-5.4)
[2016-11-20] MEDS: SODIUM CHLORIDE 0.9% INJ SCH ×2 (06:08→16:08)
[2016-11-20] MEDS: PEPCID IV SCH ×3 (06:08→18:39)
[2016-11-20 06:09] LABS: AGAP 9; ALBUMIN 2.1 g/dL (3.5-5.0); ALKALINE PHOSPHATASE 146 U/L (32-104); BUN 19 mg/dL (8-22); CALCIUM 8.1 mg/dL (8.8-10.2); CHLORIDE 105 mmol/L (98-107); COSMO 281; GOT 34 U/L (10-30); GPT 33 U/L (10-36); POTASSIUM 3.9 mmol/L (3.5-5.1); SODIUM 139 mmol/L (136-145); TCO2 25 mmol/L (25-35); TOTAL BILIRUBIN 0.42 mg/dL (0.20-1.00)
[2016-11-20] MEDS: 1/2 NS 1,000 ML IV SCH ×2 (06:37→21:23)
[2016-11-20] MEDS ORDERED: VANCOMYCIN IV PER PHARMACY MISC SCH ×2 (09:15→09:45)
--- NOTE | 2016-11-20 09:22 | PROGRESS NOTE ---
DATE: 11/20/2017 SUBJECTIVE: Ms. Chan is awake. She has had some episodes of confusion. She does not appear to be in any new distress. No pain at this point. No nausea. Breathing comfortably. OBJECTIVE: Temperature 98.8 degrees, pulse 98, respirations 20, blood pressure 135/63. Pupils are equal and round. CVP less than 6 cm. Lungs are clear in all lung sotelo. Cardiovascular: Regular rhythm and rate without murmur or S3. Abdomen is soft. Skin is warm and dry. Wounds on the right shoulder, axillary, and arm appear to be healing. Blood sugar is 165 and 118. LABORATORY DATA: Lab from this morning: White count has come down to 15,810. Hematocrit is 27, platelet count 321,000. Sodium 139, potassium 3.9, chloride 105. BUN 19, creatinine 0.9, blood sugar 151, 118, 115. ALT was 33. AST 34. Alkaline phosphatase 146. Albumin 2.1. ASSESSMENT AND PLAN: 1. More alert and attentive, following simple commands. Dr. Bell is following. I do not see any language deficit and appears to be improving cognitively. 2. Necrotizing fasciitis. Multiple debridements per Dr. Cope. Right subclavian catheter. Staphylococcus has been isolated. Continue present antibiotics, Rocephin, micafungin and vancomycin. 3. Diabetes mellitus. Type 2. Sugars are under good control. 4. Protein calorie malnutrition. Low albumin and low pre-albumin. Continue to encourage p.o. intake. 5. Metabolic encephalopathy as noted above which has improved. 6. General weakness and deconditioning. Continue physical therapy. REVIEW OF ORDERS: I do not see any change at this point. cc: Ben Mistry MD
[2016-11-20] MEDS ORDERED: INSULIN PEN NEEDLES ONE (09:53)
[2016-11-20] MEDS: LOVENOX SUBQ SCH ×2 (10:03→11:21)
[2016-11-20] MEDS: LANTUS SUBQ SCH (10:03)
[2016-11-20] MEDS: POTASSIUM CHLORIDE 20% LIQUID PO SCH (10:03)
[2016-11-20] MEDS ORDERED: VANCOMYCIN 2,000 MG in NS 500 ML IV ONE (11:00)
[2016-11-20] MEDS: LIPOSYN 20% 500 ML IV SCH (13:03)
[2016-11-20] MEDS: MYCAMINE 100 MG in NS 100 ML IV SCH (16:08)
[2016-11-20] MEDS: ROCEPHIN 2 GM/NS 2 GM/50 ML IVPB IV SCH (16:08)
[2016-11-20] MEDS: NS 500 ML IV SCH (18:38)
[2016-11-21] MEDS: MORPHINE IV PRN ×3 (00:56→21:56)
[2016-11-21] MEDS: HUMALOG SUBQ SCH ×6 (01:12→21:57)
[2016-11-21 05:05] LABS: MANUAL DIFF NEEDED? NO
[2016-11-21 05:34] LABS: BASO% 0.4 % (0.0-0.8); EOS% 2.6 % (0.0-10.0); HEMATOCRIT 25.5 % (37.0-47.0); HEMOGLOBIN 8.3 g/dL (12.0-16.0); IMM GRAN# 0.18 X1000 (0.0-0.04); IMM GRAN% 1.2 % (0.0-0.5); LYMPH# 1.77 X1000 (1.2-3.4); LYMPH% 11.4 % (20.5-51.1); MCHC 32.5 g/dL (33-37); MCV 98.5 FL (81-99); MONO# 0.72 X1000 (0.11-0.59); MONO% 4.6 % (1.7-9.3); MPV 10.2 FL (7.4-10.4); NEUT% 79.8 % (42.2-75.2); PLT 328 X1000 (130-400); RBC 2.59 XMIL (4.2-5.4)
[2016-11-21 05:45] LABS: ALBUMIN 1.9 g/dL (3.5-5.0); CALCIUM 8.3 mg/dL (8.8-10.2); POTASSIUM 3.9 mmol/L (3.5-5.1); TOTAL BILIRUBIN 0.34 mg/dL (0.20-1.00); TOTAL PROTEIN 5.1 g/dL (6.3-8.3)
[2016-11-21] MEDS: 1/2 NS 1,000 ML IV SCH (05:59)
[2016-11-21] MEDS: SODIUM CHLORIDE 0.9% INJ SCH (06:00)
[2016-11-21] MEDS: PEPCID IV SCH ×2 (06:00→17:23)
[2016-11-21] MEDS: POTASSIUM CHLORIDE 20% LIQUID PO SCH (09:04)
[2016-11-21] MEDS: LANTUS SUBQ SCH (09:42)
[2016-11-21] MEDS: LOVENOX SUBQ SCH (11:28)
[2016-11-21] MEDS: VANCOMYCIN 1,200 MG in NS 250 ML IV SCH (11:30)
--- NOTE | 2016-11-21 11:32 | PROGRESS NOTE ---
DATE: 11/21/2016 SUBJECTIVE: Ms. Chan is given. She is eating well. Her right shoulder, arm, axilla, the swelling seems to be going down, decreased erythema. OBJECTIVE: Vital signs: She remains afebrile, temperature 98, pulse 99, respirations 18, blood pressure 120/61. HEENT: Pupils are equal, round. Neck: CVP less than 6 cm. Lungs: Clear in all lung sotelo. Cardiovascular: Regular rhythm and rate without murmur or S3. Abdomen: Soft. Skin: Warm and dry. Intake and output: Urine output 4600 mL. LAB: White count 15,510, hematocrit 25, platelet count 328,000. Chemistry: Sodium 137, potassium 3.9, chloride 104, BUN 18, creatinine 1.0. Blood sugar 106, 160, 131. AST 36, ALT 30, alkaline phosphatase 143. ASSESSMENT AND PLAN: 1. Necrotizing fasciitis. Seems to be healing. She has a right subclavian catheter. Staphylococcus has been isolated, so continue the vancomycin, Rocephin, micafungin. 2. Acute renal injury which has resolved. No longer requiring dialysis. Renal function appears to be stable. 3. Diabetes mellitus type 2. Blood sugar is doing well. 4. Metabolic encephalopathy which is improved. 5. General weakness and deconditioning. Continue therapy. 6. I have reviewed orders. I do not see any change this point. cc: Ben Mistry MD
[2016-11-21] MEDS: MYCAMINE 100 MG in NS 100 ML IV SCH (16:57)
[2016-11-21] MEDS: ROCEPHIN 2 GM/NS 2 GM/50 ML IVPB IV SCH (16:57)
[2016-11-21] MEDS: NS 500 ML IV SCH (17:47)
[2016-11-21] MEDS: LIPOSYN 20% 500 ML IV SCH (21:56)
[2016-11-21] MEDS: ZOFRAN IV PRN (22:41)
[2016-11-22] MEDS: 1/2 NS 1,000 ML IV SCH ×2 (01:20→04:54)
[2016-11-22] MEDS: HUMALOG SUBQ SCH ×5 (02:05→22:10)
[2016-11-22] MEDS: MORPHINE IV PRN ×2 (02:12→09:24)
[2016-11-22] MEDS: PEPCID IV SCH ×3 (04:54→22:11)
[2016-11-22 04:55] LABS: MANUAL DIFF NEEDED? NO
[2016-11-22 05:02] LABS: BASO% 0.4 % (0.0-0.8); EOS# 0.62 X1000 (0.0-0.7); HEMATOCRIT 29.9 % (37.0-47.0); HEMOGLOBIN 9.8 g/dL (12.0-16.0); IMM GRAN# 0.21 X1000 (0.0-0.04); IMM GRAN% 1.4 % (0.0-0.5); LYMPH# 1.91 X1000 (1.2-3.4); LYMPH% 12.3 % (20.5-51.1); MCH 31.6 PG (27-31); MCHC 32.8 g/dL (33-37); MCV 96.5 FL (81-99); MONO# 0.88 X1000 (0.11-0.59); MONO% 5.7 % (1.7-9.3); MPV 9.5 FL (7.4-10.4); NEUT% 76.2 % (42.2-75.2); PLT 356 X1000 (130-400)
[2016-11-22 05:20] LABS: AGAP 8; ALBUMIN 2.1 g/dL (3.5-5.0); ALKALINE PHOSPHATASE 158 U/L (32-104); BUN 19 mg/dL (8-22); CALCIUM 8.7 mg/dL (8.8-10.2); CHLORIDE 105 mmol/L (98-107); COSMO 277; GOT 45 U/L (10-30); GPT 37 U/L (10-36); POTASSIUM 4.1 mmol/L (3.5-5.1); SODIUM 138 mmol/L (136-145); TCO2 25 mmol/L (25-35); TOTAL BILIRUBIN 0.41 mg/dL (0.20-1.00); TOTAL PROTEIN 5.3 g/dL (6.3-8.3)
--- NOTE | 2016-11-22 07:00 | PROGRESS NOTE ---
DATE: 11/22/2016 PRESENT ILLNESS: The patient is being treated for necrotizing fasciitis. She has had thorough debridement performed by Dr. Star Cope and she is on intensive antimicrobial therapy. MEDICATIONS: Currently, she is on vancomycin, Rocephin, and micafungin. The patient has been on a total now of 12 days of antibiotics for her necrotizing fasciitis. PHYSICAL EXAMINATION: Vital Signs: Temperature is 97.5 degrees, pulse 99, respirations 12, blood pressure 154/66. General: This is a somewhat ill-appearing, elderly female. She is in no acute distress. She did not complain to me this morning of pain. Lungs: Clear to auscultation. Cardiovascular: Heart rate is regular. Abdomen: Soft and nontender. Wounds: The dressings are intact. The VAC is in place also. The patient's wounds have dressings on them including one with the VAC. Neurologic: The patient is arousable. She can move her extremities. There is no tremor. LABORATORY AND X-RAY: The patient does not have an x-ray for today. There were no radiographic studies. Her CBC shows a white count of 15,470, hemoglobin 9.8, and platelet count 356,000. Creatinine is 0.9. GFR is greater than 60. Alkaline phosphatase is elevated at 158. ASSESSMENT AND PLAN: The patient has necrotizing fasciitis. The plan will be to continue with her antibiotics and her wound care for the necrotizing fasciitis. The patient's comorbidities include being elderly, diabetic, obese, and having been found down after 3-5 days in her home. cc: Jhon Ortiz MD
--- NOTE | 2016-11-22 08:30 | PROGRESS NOTE ---
DATE: 11/22/2016 SUBJECTIVE: Ms. Chan was awake and says that she feels pretty puny and tired but otherwise feeling better. She is eating well. PHYSICAL EXAMINATION: Vital Signs: Temperature 97.5 degrees, pulse 99, respirations 12, blood pressure 154/66. CVP less than 6 cm. Lungs: Clear in all lung sotelo. Cardiovascular Examination: Regular rhythm and rate without murmur or S3. Abdomen: Soft. Skin: Is warm and dry. Is and Os: Urine output over 4 L. LAB: White count 15,470, hematocrit 29, platelet count 356,000. Sodium 138, potassium 4.1, chloride 105, BUN 19, creatinine 0.9, blood sugar 157, 183, 90. Note that her liver enzymes are coming down. AST 45, ALT 37, alkaline phosphatase 158. Albumin 2.1. ASSESSMENT AND PLAN: 1. Necrotizing fasciitis. Continue intravenous antibiotics. Clinically getting better. Nutrition improved, oral intake improved. Continue to work on her strength. 2. Diabetes mellitus type 2. Sugars under good control. 3. Renal function, looks good. 4. Need to see about placement. Discussion with family where to go from here. She needs a lot of work on her strength and conditioning. 5. We will continue her intravenous antibiotics. She is on vancomycin, Rocephin, and micafungin, and on a total 12 days of antibiotics. cc: Ben Mistry MD
[2016-11-22] MEDS: POTASSIUM CHLORIDE 20% LIQUID PO SCH (09:42)
[2016-11-22] MEDS: LANTUS SUBQ SCH (09:43)
[2016-11-22] MEDS: VANCOMYCIN 1,200 MG in NS 250 ML IV SCH (11:22)
[2016-11-22] MEDS: LOVENOX SUBQ SCH (11:23)
[2016-11-22] MEDS ORDERED: DIPRIVAN 1% ONE (11:51)
[2016-11-22] MEDS ORDERED: XYLOCAINE-MPF 2% ONE (11:51)
[2016-11-22] MEDS ORDERED: MURI-LUBE MINERAL OIL ONE (12:00)
[2016-11-22] MEDS ORDERED: OFIRMEV 1000 MG/ISOTONIC SOLN 1,000 MG/100 ML BOTTLE ONE (12:36)
[2016-11-22] MEDS: ROCEPHIN 2 GM/NS 2 GM/50 ML IVPB IV SCH (17:38)
[2016-11-22] MEDS: MYCAMINE 100 MG in NS 100 ML IV SCH (18:51)
[2016-11-22] MEDS: PERIDEX MT SCH (22:32)
[2016-11-23] MEDS: 1/2 NS 1,000 ML IV SCH ×3 (01:09→15:20)
[2016-11-23] MEDS: LIPOSYN 20% 500 ML IV SCH (01:27)
[2016-11-23] MEDS: HUMALOG SUBQ SCH ×6 (01:32→22:05)
[2016-11-23] MEDS: 1: D50W 500 ML, AMINOSYN 10% 500 ML with TPN ELECTROLYTES 20 ML, CALCIUM GLUCONATE 5 MEQ IV SCH ×11 (04:33)
[2016-11-23] MEDS: SODIUM CHLORIDE 0.9% INJ SCH (06:15)
[2016-11-23] MEDS: PEPCID IV SCH ×2 (06:15→18:46)
[2016-11-23 06:16] LABS: AGAP 9; ALBUMIN 2.1 g/dL (3.5-5.0); ALKALINE PHOSPHATASE 171 U/L (32-104); BUN 18 mg/dL (8-22); CALCIUM 8.9 mg/dL (8.8-10.2); CHLORIDE 107 mmol/L (98-107); COSMO 285; GOT 43 U/L (10-30); GPT 39 U/L (10-36); POTASSIUM 4.3 mmol/L (3.5-5.1); SODIUM 141 mmol/L (136-145); TCO2 25 mmol/L (25-35); TOTAL BILIRUBIN 0.37 mg/dL (0.20-1.00); TOTAL PROTEIN 4.9 g/dL (6.3-8.3)
--- NOTE | 2016-11-23 07:34 | Diag Imaging Result Doc PS360 ---
EXAM: CHEST-PORTABLE INDICATION: abnormal exam TECHNIQUE: One view COMPARISON: 11/19/2016 FINDINGS: Right central line is in stable position. Inspiration is suboptimal. There are bilateral small pleural effusions similar to the previous study. Opacity at the left lung base appears slightly more significant as compared to the previous study. This may be due to worsening atelectasis versus infiltrate. Cardiac silhouette is stable. IMPRESSION: Slight increased opacity at the left lung base as described. Electronically signed by Dk Fletcher 11/23/2016 7:31 AM
[2016-11-23] MEDS: LANTUS SUBQ SCH (10:31)
[2016-11-23] MEDS: PERIDEX MT SCH ×2 (10:33→22:05)
[2016-11-23] MEDS: LOVENOX SUBQ SCH (10:35)
[2016-11-23] MEDS: KLOR-CON PO SCH (10:46)
[2016-11-23] MEDS: VANCOMYCIN 1,200 MG in NS 250 ML IV SCH (12:48)
[2016-11-23] MEDS: MORPHINE IV PRN ×3 (13:37→23:36)
--- NOTE | 2016-11-23 13:56 | PROGRESS NOTE ---
DATE: 11/23/2016 SUBJECTIVE: Ms. Chan is feeling better. Awake and alert. One of her friends was there, I think a cousin. She is eating well. No fevers. OBJECTIVE: Vital Signs: Temperature 98 degrees, pulse 101, respirations 24, and blood pressure 149/58. HEENT: Pupils are equal and round. Lungs: Clear in all lung sotelo. Cardiovascular: Regular rhythm and rate, without murmur or S3. Abdomen: Soft. Skin: Warm and dry. URINE OUTPUT: Over 3 L. LABORATORY: Reviewed from yesterday. White count 15,470, hematocrit 29, platelet count 256,000. Sodium 141, potassium 4.3, chloride 107, bicarbonate 25, BUN 18, creatinine 0.9, blood sugars 144, 127, and 123. IMAGING: She had a chest x-ray today. Chest x-ray showed slight increased opacity in the left lung base. The right central line is in stable position. Bilateral small pleural effusions appreciated. Opacity in the left lung appears slightly more significant. ASSESSMENT AND PLAN: 1. Necrotizing fasciitis. A long course of multiple surgeries for debridement. Doing very well. Seems to be healing. Continue present antibiotics. 2. Diabetes mellitus, type 2. Sugar is under good control. 3. Renal insufficiency, acute kidney injury, which has improved and resolved with good renal function. 4. Look for rehabilitation placement. Hopefully, we can aim for possibly on Tuesday. Continue physical therapy. Repeat labs this morning. Renal function looks good. Her hematocrit is stable at 29. REVIEW OF HER ORDERS: I do not see anything to change at this point. The director of social work is already looking, but will have to tell her to look for rehab. cc: Ben Mistry MD
--- NOTE | 2016-11-23 15:55 | PROGRESS NOTE ---
DATE: 11/23/2016 PRESENT ILLNESS: The patient is being treated for necrotizing fasciitis. She has had thorough debridement performed by Dr. Star Cope. MEDICATIONS: Currently, the patient has been on Rocephin and micafungin for 8 days and vancomycin for 3 days. She has been on a total now of 13 days of antibiotics for her necrotizing fasciitis. The only cultures grown from the wounds of the patient are staphylococci. PHYSICAL EXAMINATION: Vital Signs: Temperature is 98 degrees, pulse 101, respirations 14, blood pressure 149/58. Generally: This is a somewhat ill-appearing elderly female. She is alert and is in no acute distress. Lungs clear to auscultation. Cardiovascular: Regular heart rate. The patient's wounds had the VAC or dressings on them. Abdomen is soft and nontender. Neurologic: Patient is alert. She can move her extremities. LABORATORY DATA AND X-RAY: CBC shows a white count of 15,470. Hemoglobin 9.8 and platelet count 256,000. Creatinine 0.9. GFR is greater than 60. A vancomycin level was 15.4. There is no new x-ray today. ASSESSMENT AND PLAN: The patient has necrotizing fasciitis. I discontinued micafungin and Rocephin and the patient will be on vancomycin as a single drug. Patient's comorbidities include she is elderly, diabetic, obese, and was found down in her house after 3-5 days. cc: Jhon Ortiz MD
[2016-11-23] MEDS ORDERED: LASIX IV ONE (18:13)
[2016-11-23] MEDS: NS 500 ML IV SCH (18:48)
[2016-11-24] MEDS: LIPOSYN 20% 500 ML IV SCH (01:05)
[2016-11-24] MEDS: 1: D50W 500 ML, AMINOSYN 10% 500 ML with TPN ELECTROLYTES 20 ML, CALCIUM GLUCONATE 5 MEQ IV SCH ×22 (01:05→20:14)
[2016-11-24] MEDS: HUMALOG SUBQ SCH ×5 (01:07→20:13)
[2016-11-24] MEDS: 1/2 NS 1,000 ML IV SCH ×3 (01:56→20:20)
[2016-11-24] MEDS: PEPCID IV SCH ×2 (05:34→17:09)
[2016-11-24] MEDS ORDERED: LASIX IV ONE ×2 (06:00→17:51)
[2016-11-24 06:12] LABS: AGAP 9; ALKALINE PHOSPHATASE 160 U/L (32-104); BUN 17 mg/dL (8-22); CALCIUM 8.9 mg/dL (8.8-10.2); CHLORIDE 103 mmol/L (98-107); COSMO 280; GOT 42 U/L (10-30); GPT 37 U/L (10-36); POTASSIUM 3.7 mmol/L (3.5-5.1); SODIUM 139 mmol/L (136-145); TCO2 27 mmol/L (25-35); TOTAL BILIRUBIN 0.28 mg/dL (0.20-1.00); TOTAL PROTEIN 5.4 g/dL (6.3-8.3)
[2016-11-24] MEDS: MORPHINE IV PRN ×2 (06:22→09:46)
[2016-11-24] MEDS: LANTUS SUBQ SCH (10:57)
[2016-11-24] MEDS: KLOR-CON PO SCH (10:57)
[2016-11-24] MEDS: PERIDEX MT SCH ×2 (10:58→20:14)
[2016-11-24] MEDS: VANCOMYCIN 1,200 MG in NS 250 ML IV SCH (10:59)
[2016-11-24] MEDS: LOVENOX SUBQ SCH (10:59)
--- NOTE | 2016-11-24 11:46 | PROGRESS NOTE ---
DATE: 11/24/2016 SUBJECTIVE: This patient is lying comfortably in bed. Family members at the bedside. She is answering all my questions and following commands. Apparently, she has been a little bit confused on and off but not with me today. I talked to Dr. Ortiz from infectious disease department and his plan is to continue this patient on vancomycin for at least a couple of weeks. Also, I contacted the surgery department and they will go to the OR next Tuesday and hopefully they will remove the wound VAC. She is extremely weak. Physical therapy is on board. We do have an LTAC placement for this patient. I do believe LTAC is appropriate and after that, probably she will need a SNF. OBJECTIVE: Vital Signs: Temperature 98 degrees, pulse 101, respiratory rate 17, blood pressure 138/58, oxygen saturation 100% on room air. HEENT: Head normocephalic. No trauma. PERRLA. Neck: Supple. No JVD. No masses. Central trachea. Chest: She has a dressing at the level of the right upper thorax and right arm, wound VAC that is working, no signs of bleed. Painful to palpation. Chest: Mild rhonchi at the level of the right lung. Otherwise clear to auscultation. No wheezing. Abdomen: Soft, protuberant, nontender, nondistended. Extremities: Like I mentioned before, she has a dressing at the level of the right upper arm. No sign of bleed. Edematous. There is 3+ lower extremity edema. Neurological Examination: The patient is alert, oriented x2. She is not oriented in time. As per the family members, she has been confused on and off but not with me today. She is following commands and moving all 4 extremities. She is extremely weak and she is on physical therapy. Laboratory: Sodium 139, potassium 3.7, chloride 103, bicarbonate 27, BUN 17, creatinine 0.9, glucose 109, calcium 8.9, albumin 2. ASSESSMENT AND PLAN: 1. Necrotizing fasciitis of the right upper thorax and axilla. Dr. Cope will take this patient to the operating room again on Tuesday. Hopefully, he will remove the Port-A-Cath. We will continue with the same management and antibiotics. 2. Sepsis, resolved. Continue with the same management. 3. Acute kidney injury, resolved. BUN and creatinine are normal today. 4. Respiratory failure, resolved. This patient is on room air and the oxygen saturation has been adequate. 5. Type 2 diabetes. Continue with pattern of blood sugar water. This is well controlled. 6. Physical deconditioning. Physical therapy is on board. The plan is to discharge this patient to an LTAC this Tuesday. cc: Raul Ahuja MD
[2016-11-24] MEDS: SODIUM CHLORIDE 0.9% INJ SCH (17:10)
[2016-11-25] MEDS: HUMALOG SUBQ SCH ×6 (01:00→22:04)
[2016-11-25] MEDS: LIPOSYN 20% 500 ML IV SCH ×3 (02:00→17:08)
[2016-11-25 05:40] LABS: MANUAL DIFF NEEDED? NO
[2016-11-25 05:46] LABS: BASO% 0.7 % (0.0-0.8); EOS# 1.11 X1000 (0.0-0.7); EOS% 9.5 % (0.0-10.0); HEMATOCRIT 29.5 % (37.0-47.0); HEMOGLOBIN 9.5 g/dL (12.0-16.0); IMM GRAN# 0.14 X1000 (0.0-0.04); IMM GRAN% 1.2 % (0.0-0.5); LYMPH# 1.72 X1000 (1.2-3.4); LYMPH% 14.8 % (20.5-51.1); MCH 31.8 PG (27-31); MCHC 32.2 g/dL (33-37); MCV 98.7 FL (81-99); MONO# 0.82 X1000 (0.11-0.59); MPV 9.4 FL (7.4-10.4); NEUT% 66.8 % (42.2-75.2); PLT 477 X1000 (130-400); RBC 2.99 XMIL (4.2-5.4)
[2016-11-25 06:20] LABS: ALBUMIN 2.2 g/dL (3.5-5.0); CALCIUM 9.1 mg/dL (8.8-10.2); POTASSIUM 3.7 mmol/L (3.5-5.1); TOTAL BILIRUBIN 0.25 mg/dL (0.20-1.00); TOTAL PROTEIN 5.6 g/dL (6.3-8.3)
--- NOTE | 2016-11-25 07:35 | Diag Imaging Result Doc PS360 ---
EXAM: CHEST-PORTABLE HISTORY: abnormal exam TECHNIQUE: Erect AP portable at 0555 COMMENT: There is retrocardiac opacity which has not changed since 11/23/2016. Overall, considering differences in technique there has been no significant change in the appearance of the chest. IMPRESSION: Atelectasis and/or pneumonia left lower lobe. Electronically signed by Arnoldo Wray 11/25/2016 7:33 AM
[2016-11-25] MEDS: PEPCID IV SCH ×2 (08:12→18:06)
[2016-11-25] MEDS: SODIUM CHLORIDE 0.9% INJ SCH ×2 (08:13→18:06)
[2016-11-25] MEDS: KLOR-CON PO SCH (09:59)
[2016-11-25] MEDS: LANTUS SUBQ SCH (10:00)
[2016-11-25] MEDS: LASIX PO SCH (10:00)
[2016-11-25] MEDS: PERIDEX MT SCH ×2 (10:01→22:05)
[2016-11-25] MEDS: MORPHINE IV PRN (11:12)
[2016-11-25] MEDS: LOVENOX SUBQ SCH (11:49)
[2016-11-25] MEDS: VANCOMYCIN 1,200 MG in NS 250 ML IV SCH (11:49)
--- NOTE | 2016-11-25 13:48 | PROGRESS NOTE ---
DATE: 11/25/2016 PRESENT ILLNESS: The patient is being treated for necrotizing fasciitis. She has had debridement performed by Dr. Cope and she has also been on long-term antibiotics. Currently the patient is on vancomycin as a single agent. MEDICATIONS: As mentioned above, the patient now is on single agent namely vancomycin. This is the 16th day of treatment with antibiotics for her wounds. PHYSICAL EXAMINATION: Vital Signs: Temperature is 98.3 degrees, pulse 98, respirations 18, blood pressure 133/41. Generally: This is a somewhat ill-appearing elderly female. She is in no acute distress. Lungs: Clear to auscultation. Cardiovascular: Regular heart rate. Abdomen: Soft and nontender. Legs: Patient has edema. Neck: Patient has an internal jugular catheter in place. Skin: The patient's wounds have dressings on them and others have the VAC on them. LAB AND X-RAY: Chest x-ray shows left lower lobe atelectasis versus pneumonia. CBC shows a white count of 11,650, hemoglobin 9.5, and platelet count 477,000. Creatinine is 1. GFR is 54. Alkaline phosphatase is 154. ASSESSMENT AND PLAN: The patient has necrotizing fasciitis. Dr. Mistry's note indicates that Dr. Cope will be performing surgery on the patient tomorrow. I would like to see what the results of the surgery are to determine if the patient needs further antibiotics. The patient may be developing a pneumonia. I am going to go ahead and add cefepime back and continue with her vancomycin. COMORBIDITIES: Include being elderly, being a diabetic, being obese and the fact she was found down in her house after 3-5 days. cc: Jhon Ortiz MD
--- NOTE | 2016-11-25 14:14 | PROGRESS NOTE ---
DATE: 11/25/2016 SUBJECTIVE: This patient is lying comfortably in bed. Family members at the bedside. She is answering all my questions and following commands. As per the family members she has been confused on and off but she is getting better. Tomorrow hopefully Surgery Department will go with her to the OR, and probably they will remove the wound VAC from the lesion. After that, probably this patient will be going to LTAC. OBJECTIVE: Vital Signs: Temperature 98.3 degrees, pulse 98, respiratory rate 18, blood pressure 133/41, O2 saturation 98 on room air. HEENT: Head normocephalic. No trauma. PERRLA. Neck: Supple. No JVD. No masses. Central trachea. Chest: She has a dressing at the level of the right upper thorax and right arm. Wound VAC that is working. No sign of bleed. Painful to palpation. Chest: Mild rhonchi at the level of the right lung base. Otherwise clear to auscultation. No wheezing. Abdomen: Soft, protuberant, nontender, nondistended. Extremities: Right upper arm with a dressing. No signs of bleed. Edematous, 3+ lower extremity edema. Neurological: The patient is alert. She is oriented x2. She is answering most of my questions. Apparently she has been confused on and off. She is following commands and she is moving all 4 extremities for me. LABORATORY: WBC 11.6, hemoglobin 9.5, hematocrit 29.5, platelets 477,000. Sodium 139, potassium 3.7, chloride 99, bicarbonate 31, BUN 18, creatinine 1, glucose 134. Calcium 9.1. Albumin 2.2. ASSESSMENT AND PLAN: 1. Necrotizing fasciitis of the right upper thorax and axilla. Dr. Cope will take this patient to the OR again on Tuesday. Hopefully he will remove the Port-A-Cath and we will continue with the same management antibiotics. We already found placement for this patient in an LTAC. 2. Sepsis resolved. Continue with antibiotics. 3. Acute kidney injury. Resolved. BUN and creatinine are normal today. 4. Respiratory failure. Resolved. This patient is on room air and the oxygen saturation is stable. 5. Type 2 diabetes. Continue with blood sugar pattern. 6. Physical deconditioning. Continue physical therapy. This patient will be discharged to an LTAC once she is ready for that. cc: Raul Ahuja MD
[2016-11-25] MEDS: MAXIPIME 2 GM/NS 2 GM/100 ML IVPB IV SCH (16:58)
[2016-11-25] MEDS: 1: D50W 500 ML, AMINOSYN 10% 500 ML with TPN ELECTROLYTES 20 ML, CALCIUM GLUCONATE 5 MEQ IV SCH ×11 (17:02)
[2016-11-25] MEDS: 1/2 NS 1,000 ML IV SCH (18:05)
[2016-11-26] MEDS: ZOFRAN IV PRN (02:50)
[2016-11-26] MEDS: MAXIPIME 2 GM/NS 2 GM/100 ML IVPB IV SCH ×2 (02:50→14:23)
[2016-11-26] MEDS: HUMALOG SUBQ SCH ×4 (02:51→14:09)
[2016-11-26] MEDS: LIPOSYN 20% 500 ML IV SCH (02:56)
[2016-11-26 05:51] LABS: MANUAL DIFF NEEDED? NO
[2016-11-26] MEDS: MORPHINE IV PRN ×2 (05:56→10:11)
[2016-11-26] MEDS: PEPCID IV SCH (05:57)
[2016-11-26] MEDS: SODIUM CHLORIDE 0.9% INJ SCH (05:57)
[2016-11-26 06:00] LABS: BASO% 0.6 % (0.0-0.8); EOS# 0.98 X1000 (0.0-0.7); EOS% 9.7 % (0.0-10.0); HEMATOCRIT 29.1 % (37.0-47.0); HEMOGLOBIN 9.3 g/dL (12.0-16.0); IMM GRAN# 0.15 X1000 (0.0-0.04); IMM GRAN% 1.5 % (0.0-0.5); LYMPH# 1.54 X1000 (1.2-3.4); LYMPH% 15.2 % (20.5-51.1); MCH 31.7 PG (27-31); MCV 99.3 FL (81-99); MONO# 0.93 X1000 (0.11-0.59); MONO% 9.2 % (1.7-9.3); MPV 9.6 FL (7.4-10.4); NEUT% 63.8 % (42.2-75.2); PLT 510 X1000 (130-400); RBC 2.93 XMIL (4.2-5.4)
[2016-11-26] MEDS: 1/2 NS 1,000 ML IV SCH (06:39)
[2016-11-26 06:41] LABS: AGAP 9; ALBUMIN 2.4 g/dL (3.5-5.0); ALKALINE PHOSPHATASE 146 U/L (32-104); BUN 18 mg/dL (8-22); CALCIUM 8.4 mg/dL (8.8-10.2); CHLORIDE 101 mmol/L (98-107); COSMO 282; GOT 30 U/L (10-30); GPT 30 U/L (10-36); POTASSIUM 4.1 mmol/L (3.5-5.1); SODIUM 139 mmol/L (136-145); TCO2 29 mmol/L (25-35); TOTAL BILIRUBIN 0.28 mg/dL (0.20-1.00); TOTAL PROTEIN 5.1 g/dL (6.3-8.3)
[2016-11-26] MEDS: KLOR-CON PO SCH (09:09)
[2016-11-26] MEDS: LASIX PO SCH (09:09)
[2016-11-26] MEDS: LANTUS SUBQ SCH (09:09)
[2016-11-26] MEDS: PERIDEX MT SCH (09:10)
--- NOTE | 2016-11-26 12:31 | DISCHARGE SUMMARY ---
ADMISSION DATE: 11/09/2016 DISCHARGE DATE: 11/26/2016 CONSULTATIONS: 1. Dr. Vidal Chu with Nephrology. 2. Dr. Serge Ba with Pulmonology. 3. Dr. Star Cope with General Surgery. 4. Dr. Jayy Bell with Neurology. 5. Dr. Ortiz with Infectious Disease. PERTINENT PROCEDURES: 1. Head CT showed no evidence of acute intracranial disease. 2. Extremity venous showed likely acute DVTs in the right axillary vein, also acute superficial thrombosis in the right basilic vein, medial cubital vein, and cephalic veins in the forearm. 3. Upper extremity CT on the right arm concerning for necrotizing fasciitis of the upper biceps muscle extending to the undersurface of the pectoralis muscle, diffuse subcutaneous edema about the right arm was indeterminate, but this could represent cellulitis, venous insufficiency, or widespread myositis. 4. On 11/10/2016 tunneled catheter was placed by Dr. Cope as well as incision and drainage to the right axilla area. 5. On 11/12/2016, exchange of wound VAC assisted closure device of the right axilla, replacement at the old 8 x 4 x 3 area. There was further skin necrosis on the right chest wall that was excised 23 x 7 x 3 cm with a new wound VAC strip being placed there with a bridge between the [address] Star Cope. 6. EEG was abnormal because of generalized slowing. 7. On 11/17/2016, removal of Vas-Cath and exchange of right internal jugular line, further debridement and replacement of wound VAC on the right chest wall and axillary wound, performed by Dr. Star Cope. DISCHARGE DIAGNOSES: 1. Necrotizing fasciitis of the right upper thorax and axilla status post 3 debridements with wound VAC changes. The wound VAC has since been discontinued. Patient to LTAC today. 2. Sepsis. Resolved. 3. Acute kidney injury, status post catheter placement and removal. 4. Respiratory failure. Resolved. Status post extubation. Oxygen saturations stable on room air. 5. Type 2 diabetes. Continue with patterned blood sugars. 6. Physical deconditioning. Continue with physical therapy. Patient is being discharged to LTAC. 7. Malnourishment. The patient remains on a GI soft diet with Glucerna supplements. Per Dr. Samuel, the patient will continue with TPN via her PICC line that will be placed today prior to her discharge to LTAC. HOSPITAL COURSE: Briefly, Ms. Miles is a 76-year-old female who carries a past medical history of type 2 diabetes, hypertension, allergic rhinitis, and hyperlipidemia, who was brought to the ED after her landlord noted she had not picked up her mail in 5 days. He went to knock on her door and evidently found the patient lying on the couch with her right arm behind her. At that time, she was noted to be obtunded, lethargic, and not responsive. She was covered in old and new feces. She was brought to the ED. There were no family members immediately available. The patient does live alone. She would open her eyes only to name. She was admitted for sepsis from UTI as well as acute kidney injury secondary to rhabdomyolysis secondary to compartment syndrome as well as metabolic encephalopathy secondary to acute kidney injury. She was initially started on Zosyn and vancomycin for the soft tissue infection as well as UTI, and aggressive IV fluids. She was moved to the ICU. Consulted General Surgery for debridement of the axillary area. She was placed on fingerstick blood sugars with sliding scale insulin and also a consult for Nephrology. The patient did have a tunneled catheter placed by General Surgery and at that time she had debridement of her axilla area. She started on regular scheduled hemodialysis that was overseen by Dr. Chu. She did remain intubated for a few days after surgery for respiratory failure, which Dr. Ba was consulted for. She underwent 3 separate incision and drainages, debridements, and wound VAC changes with Dr. Star Cope. Since her wound VAC has been discontinued, her renal function improved. Her tunneled catheter was discontinued, along with her hemodialysis. Dr. Jayy Bell with Neurology was asked to see the patient. He did not find any definite focal neurological finding. She did have an EEG that did show some generalized slowing, but no epileptiform discharge that indicated seizure or stroke. The patient was able to move out of the ICU to a regular floor. She did become more attentive. She was placed on TPN through a central line. She was taking in some GI soft diet as well as some Glucerna. Dr. Jhon Ortiz with Infectious Disease is to continue to treat the patient with vancomycin and cefepime for 2 more weeks. She will follow up with Dr. Star Cope in 3 weeks. She will get her PICC line placed today prior to her being discharged to LTAC. Vital signs at time of her discharge were temperature 98.8 degrees, heart rate 85, respirations 20, blood pressure 99/75, and O2 saturation is 96% on room air. DISCHARGE DIET: GI soft with Glucerna. The patient is currently on TPN. DISCHARGE MEDICATIONS: As per Dr. Samuel. 1. Tylenol 650 mg p.o. q.6 hours p.r.n. 2. Aspirin 81 mg p.o. daily. 3. Fluoxetine HCL 40 mg p.o. daily. 4. Lovenox 40 mg subcutaneous q. 24 hours. 5. Pepcid 20 mg IV q.12 hours. 6. Lasix 20 mg p.o. daily. 7. Lantus 20 units subcutaneous daily. 8. Metformin 500 mg p.o. daily. 9. Zofran 4 mg IV q.4 hours p.r.n. 10. Klor-Con 40 mEq p.o. daily. 11. Zocor 10 mg p.o. at bedtime. DISPOSITION: Patient is being transferred to LTAC to continue with IV antibiotics for 2 more weeks with vancomycin and cefepime, IV TPN and wound care to her right axilla and chest area. DISCHARGE TIME: Greater than 30 minutes. Dictated by MAGGIE Jackson for Raul Ahuja MD cc: Raul Ahuja MD
[2016-11-26 12:33] LABS: INR 1.02; PROTIME 10.7 Seconds (9.2-11.7)
[2016-11-26] MEDS: VANCOMYCIN 1,200 MG in NS 250 ML IV SCH (12:38)
[2016-11-26] MEDS ORDERED: NS 250 ML ONE (12:43)
--- NOTE | 2016-11-26 13:41 | PROGRESS NOTE ---
DATE: 11/26/2016 PRESENT ILLNESS: The patient is status post debridement and reconstruction of necrotizing fasciitis. Dr. Star Cope has skillfully performed all of her surgeries. Currently all of her incisions are intact and the skin graft has 100% take. MEDICATIONS: The patient is receiving a combination of vancomycin and cefepime. She has been on antibiotics now for 17 days. PHYSICAL EXAMINATION: Vital Signs: Temperature is 98.8 degrees, pulse 85, respirations 20, blood pressure 99/75. General: This is a somewhat ill-appearing, elderly female. She is in no acute distress. Lungs: Clear to auscultation. Cardiovascular: Regular heart rate. Abdomen: Soft and nontender. The dressings and VAC was removed from the patient's wounds. The skin graft has 100% take and all of incisions are completely intact. They are not erythematous and there is no drainage coming from them. LAB AND X-RAY: There is no new x-ray. The CBC today shows a white count of 10,110, hemoglobin 9.3, and platelet count 510,000. Creatinine is 0.9. GFR is greater than 60. The alkaline phosphatase is 146. ASSESSMENT AND PLAN: The patient has necrotizing fasciitis and is status post surgery performed on it. The plan is to continue antibiotics for now. I think if the patient goes home she will not need any further antibiotics. The patient's comorbidities include she is elderly. She also is a diabetic and is obese. She was found down in her house after 3-5 days. cc: Jhon Ortiz MD
[2016-11-26] MEDS: LOVENOX SUBQ SCH (14:24)
[2016-11-26] MEDS: NS 500 ML IV SCH (14:52)
[2016-11-26] MEDS: 1: D50W 500 ML, AMINOSYN 10% 500 ML with TPN ELECTROLYTES 20 ML, CALCIUM GLUCONATE 5 MEQ IV SCH ×11 (14:53)
[2016-11-26 16:38] VITALS: BP 137/66
--- NOTE | 2016-12-01 15:41 | OPERATIVE NOTE ---
PROCEDURE DATE: 11/22/2016 PREOPERATIVE DIAGNOSIS: History of fall with loss of consciousness and unattended for multiple days. PROCEDURE: Secondary wound closure, split-thickness skin graft, trimming of long toenails. DESCRIPTION OF PROCEDURE: The patient was brought to the operating room. After satisfactory induction of IV and LMA anesthesia, she was turned onto her right side. The wound VAC was removed from the right chest wall. The area was prepped and draped in the appropriate manner. The axillary wound underwent further debridement and primary closure with stainless steel clips. The extended long chest wall wound was secondarily closed. It was 21 cm long. The anterior part was closed primarily with 0 Vicryl and stainless steel clips. The medial part underwent a graft of 9 x 5 x 3 cm. A split-thickness graft was taken from the right thigh, meshed to 1 to 1.5, and tacked down with stainless steel clips. Mepitel and wound VAC were redeployed in this area. Otherwise, sterile dressings were applied. She was subsequently turned back onto her back. She had toenails that were 2-3 inches long that were sheared off with rib cutters. There was only minimal bleeding. Sterile dressings were applied to the feet, as well. The patient was subsequently awakened and extubated in the operating room, and transferred to recovery. ESTIMATED BLOOD LOSS: Around 15-20 mL. cc: Star Cope MD
== END 2016-11-26 17:20 ==
LOC: ED 15:48 → SUATTDRO 21:39 → ICU 21:39 → 3S 11-17 15:17 → 4N 11-22 13:39
PROVIDERS: ATTEND Internal Medicine